=== PATIENT | male | born 1945 | race Caucasian/White ===

== ENCOUNTER 2018-12-24 18:25 | Inpatient (IN) | payer MEDICARE, MEDICAID ==
[~2018-12-24] VITALS: Ht 172.7 cm; Wt 90.0 kg
[2018-12-24] VITALS (10 sets, daily range): BP systolic 151–198; BP diastolic 65–92
[2018-12-24 23:40] LABS: CREATININE - URINE 50.7 mg/dL (30-125); PROTEIN - URINE 199.6 mg/dL (0.0-11.9)
[2018-12-24 23:57] LABS: APPEARANCE HAZY (CLEAR); BILIRUBIN NEGATIVE (NEGATIVE); COLOR YELLOW (YELLOW); GLUCOSE 250 mg/dL (NEGATIVE); KETONE SMALL mg/dL (NEGATIVE); NITRITE NEGATIVE (NEGATIVE); PROTEIN 3+ mg/dL (NEGATIVE); RED CELLS - URINE 25-50 /hpf (0-5); WHITE CELLS - URINE RARE /hpf (0-5)
[2018-12-24 23:58] LABS: BACTERIA FEW /hpf (NONE SEEN); EPITHELIAL CELLS OCC /hpf (0-5); MUCUS <1+ /lpf (NONE SEEN)
[2018-12-25] VITALS (25 sets, daily range): BP systolic 129–181; BP diastolic 61–84; Ht 172.7 cm; Wt 90.0 kg
[2018-12-25 05:24] LABS: BASOPHILS 0 % (0-2); EOSINOPHILS 0 % (0-7); HEMATOCRIT 41.7 % (42.0-54.0); HEMOGLOBIN 15.5 g/dL (13.5-17.5); IMMATURE GRANULOCYTES 0.4 % (0-5); LYMPHOCYTES 7.3 % (15-50); MCH 33.8 pg (26.0-34.0); MCHC 37.2 g/dL (31.0-37.0); MEAN PLATELET VOLUME 10.1 fL (7.4-10.4); MONOCYTES 6.3 % (2-11); PLATELET COUNT 188 10x3/uL (130-400); RBC 4.58 10x6/uL (4.20-6.10); RDW 13.6 % (11.5-14.5); WBC 14.1 10x3/uL (4.8-10.8)
[2018-12-25 06:45] LABS: ALBUMIN 3.1 g/dL (3.4-5.0); ALKALINE PHOSPHATASE 95 U/L (46-116); ALT (SGPT) 40 U/L (10-68); CALC OSMOLALITY 253 mosm/kg (275-300); CALCIUM 8.2 mg/dL (8.5-10.1); CARBON DIOXIDE 27.6 mmol/L (21.0-32.0); CHLORIDE - SERUM 90 mmol/L (98-107); CREATININE - SERUM 0.7 mg/dL (0.6-1.3); GLUCOSE 158 mg/dL (74-106); POTASSIUM - SERUM 4.1 mmol/L (3.5-5.1); PROTEIN - SERUM 7.4 g/dL (6.4-8.2); SODIUM 125 mmol/L (136-145); UREA NITROGEN 10 mg/dL (7-18); eGFR NON AFRICAN AMERICAN > 90 mL/min (90-120)
[2018-12-26] VITALS (21 sets, daily range): BP systolic 132–180; BP diastolic 55–88
[2018-12-26 05:02] LABS: ALBUMIN 2.8 g/dL (3.4-5.0); ALKALINE PHOSPHATASE 83 U/L (46-116); ALT (SGPT) 33 U/L (10-68); CARBON DIOXIDE 33.5 mmol/L (21.0-32.0); CHLORIDE - SERUM 92 mmol/L (98-107); CREATININE - SERUM 0.7 mg/dL (0.6-1.3); GLUCOSE 135 mg/dL (74-106); PHOSPHOROUS 3.3 mg/dL (2.5-4.9); POTASSIUM - SERUM 3.6 mmol/L (3.5-5.1); PROTEIN - SERUM 6.9 g/dL (6.4-8.2); SODIUM 127 mmol/L (136-145); eGFR NON AFRICAN AMERICAN > 90 mL/min (90-120)
[2018-12-26 05:24] LABS: BASOPHILS 0.1 % (0-2); EOSINOPHILS 0.5 % (0-7); HEMATOCRIT 42.4 % (42.0-54.0); HEMOGLOBIN 14.7 g/dL (13.5-17.5); IMMATURE GRANULOCYTES 0.4 % (0-5); LYMPHOCYTES 10.9 % (15-50); MCH 32.4 pg (26.0-34.0); MCHC 34.7 g/dL (31.0-37.0); MONOCYTES 10.5 % (2-11); NEUTROPHILS 77.6 % (40-80); PLATELET COUNT 159 10x3/uL (130-400); RBC 4.54 10x6/uL (4.20-6.10); RDW 13.7 % (11.5-14.5); WBC 14.2 10x3/uL (4.8-10.8)
[2018-12-26 05:26] LABS: CALC OSMOLALITY 257 mosm/kg (275-300); UREA NITROGEN 14 mg/dL (7-18)
[2018-12-26 05:53] LABS: MCV 93.4 fL (80.0-100.0)
[2018-12-27] VITALS (26 sets, daily range): BP systolic 131–170; BP diastolic 61–83
[2018-12-27 04:32] LABS: BASOPHILS 0.1 % (0-2); EOSINOPHILS 0.8 % (0-7); HEMATOCRIT 40.4 % (42.0-54.0); HEMOGLOBIN 14.3 g/dL (13.5-17.5); IMMATURE GRANULOCYTES 0.2 % (0-5); LYMPHOCYTES 11.1 % (15-50); MCH 32.4 pg (26.0-34.0); MCHC 35.4 g/dL (31.0-37.0); MCV 91.6 fL (80.0-100.0); MEAN PLATELET VOLUME 10.1 fL (7.4-10.4); MONOCYTES 7.5 % (2-11); NEUTROPHILS 80.3 % (40-80); PLATELET COUNT 179 10x3/uL (130-400); RBC 4.41 10x6/uL (4.20-6.10); RDW 13.5 % (11.5-14.5); WBC 13.9 10x3/uL (4.8-10.8)
[2018-12-27 04:53] LABS: ALBUMIN 2.5 g/dL (3.4-5.0); ALKALINE PHOSPHATASE 77 U/L (46-116); ALT (SGPT) 33 U/L (10-68); BILIRUBIN - TOTAL 0.42 mg/dL (0.2-1.3); CALC OSMOLALITY 261 mosm/kg (275-300); CALCIUM 8.2 mg/dL (8.5-10.1); CARBON DIOXIDE 31.1 mmol/L (21.0-32.0); CHLORIDE - SERUM 92 mmol/L (98-107); CREATININE - SERUM 0.7 mg/dL (0.6-1.3); GLUCOSE 143 mg/dL (74-106); MAGNESIUM - SERUM 2.1 mg/dL (1.8-2.4); PHOSPHOROUS 3.4 mg/dL (2.5-4.9); POTASSIUM - SERUM 3.7 mmol/L (3.5-5.1); PROTEIN - SERUM 6.6 g/dL (6.4-8.2); SODIUM 129 mmol/L (136-145); UREA NITROGEN 14 mg/dL (7-18); eGFR NON AFRICAN AMERICAN > 90 mL/min (90-120)
[2018-12-28] VITALS (18 sets, daily range): BP systolic 92–157; BP diastolic 54–82
[2018-12-28 03:59] LABS: BASOPHILS 0.1 % (0-2); EOSINOPHILS 2.1 % (0-7); HEMOGLOBIN 14.5 g/dL (13.5-17.5); IMMATURE GRANULOCYTES 0.3 % (0-5); LYMPHOCYTES 11.4 % (15-50); MCH 32.6 pg (26.0-34.0); MCHC 35.4 g/dL (31.0-37.0); MCV 92.1 fL (80.0-100.0); MONOCYTES 7.9 % (2-11); NEUTROPHILS 78.2 % (40-80); PLATELET COUNT 174 10x3/uL (130-400); RBC 4.45 10x6/uL (4.20-6.10); RDW 13.4 % (11.5-14.5); WBC 13.5 10x3/uL (4.8-10.8)
[2018-12-28 04:17] LABS: ALBUMIN 2.5 g/dL (3.4-5.0); ALKALINE PHOSPHATASE 74 U/L (46-116); ALT (SGPT) 35 U/L (10-68); BILIRUBIN - TOTAL 0.36 mg/dL (0.2-1.3); CALCIUM 8.5 mg/dL (8.5-10.1); CARBON DIOXIDE 32.6 mmol/L (21.0-32.0); CHLORIDE - SERUM 93 mmol/L (98-107); CREATININE - SERUM 0.8 mg/dL (0.6-1.3); GLUCOSE 142 mg/dL (74-106); MAGNESIUM - SERUM 2.3 mg/dL (1.8-2.4); POTASSIUM - SERUM 3.9 mmol/L (3.5-5.1); PROTEIN - SERUM 6.8 g/dL (6.4-8.2); SODIUM 129 mmol/L (136-145); eGFR NON AFRICAN AMERICAN > 90 mL/min (90-120)
[2018-12-28 04:18] LABS: CALC OSMOLALITY 263 mosm/kg (275-300); PHOSPHOROUS 4.3 mg/dL (2.5-4.9); UREA NITROGEN 20 mg/dL (7-18)
--- NOTE | 2018-12-28 18:01 | MORECARE ---
CASE MANAGEMENT DISCHARGE SUMMARY PATIENT: ANNEL NUNEZ UNIT: [id number] ADM DATE: 12/24/18 AGE: 73 : 46 SEX: M ROOM/BED: D.2309 AUTHOR: JAC JENKINS PHYSICIAN: REFERRING PHYSICIAN: DANNI TAY MD DATE OF SERVICE: 12/28/18 Discharge Plan Patient Name: ANNEL [facility]UNE[facility] [facility] 1945 Planned Disposition: Home with Home Health and Infusion Serv Anticipated Discharge Date: Discharge Date: Expected LOS: Initial Reviewer: [email or web address] Initial Review Date: 12/27/2018 Generated: 12/28/18 7:01 pm Patient Name: ANNEL NUNEZ Page 62804 at 1801 All edits/amendments must be made on the electronic document DICTATION DATE: 12/28/181800 CLINICAL PSYCHOLOGIST LICENSED: JEAN 12/28/181800 RPT#: [id number] DC DATE: STATUS: ADM IN [facility] [address] [place] [address] END OF REPORT
--- NOTE | 2018-12-28 18:09 | MORECARE ---
CASE MANAGEMENT DISCHARGE SUMMARY PATIENT: ANNEL NUNEZ UNIT: [id number] ADM DATE: 12/24/18 AGE: 73 : 46 SEX: M ROOM/BED: D.2309 AUTHOR: JAC JENKINS PHYSICIAN: REFERRING PHYSICIAN: DANNI TAY MD DATE OF SERVICE: 12/28/18 Discharge Plan Patient Name: ANNEL NUNEZ [facility] [facility] 1945 Planned Disposition: Home with Home Health and Infusion Serv Anticipated Discharge Date: Discharge Date: Expected LOS: Initial Reviewer: [email or web address] Initial Review Date: 12/27/2018 Generated: 12/28/18 7:08 pm DCPIA - Discharge Planning Initial Assessment Updated by [email or web address]: Selin Vides on 12/28/18 6:05 pm * Is the patient Alert and Oriented? Yes * PCP NO PCP * Pharmacy DENIES HAVING A PHARMACY * Preadmission Environment Home Alone * ADLs Independent * Equipment None * List name and contact numbers for known caregivers / representatives who currently or will assist patient after discharge: REDD COLIN [facility] [phone] * Verbal permission to speak to the caregivers and representatives has been obtained from the patient. Yes * Community resources currently utilized None * Additional services required to return to the preadmission environment? No * Can the patient safely return to the preadmission environment? Yes * Has this patient been hospitalized within the prior 30 days at any hospital? No Last DP export: 12/28/18 5:01 p Patient Name: ANNEL NUNEZ Page 95449 at 1809 All edits/amendments must be made on the electronic document DICTATION DATE: 12/28/181807 COCONUT JELLY ROLLER: JEAN 12/28/181807 RPT#: [id number] DC DATE: STATUS: ADM IN [facility] [address] [place] [address] END OF REPORT
--- NOTE | 2018-12-28 18:23 | MORECARE ---
CASE MANAGEMENT DISCHARGE SUMMARY PATIENT: ANNEL NUNEZ UNIT: [id number] ADM DATE: 12/24/18 AGE: 73 : 46 SEX: M ROOM/BED: D.2309 AUTHOR: ALICE,DOC PHYSICIAN: REFERRING PHYSICIAN: DANNI TAY MD DATE OF SERVICE: 12/28/18 Discharge Plan Patient Name: ANNEL NUNEZ Facility: [facility]:[place] : 1945 Planned Disposition: Home with Home Health and Infusion Serv Anticipated Discharge Date: Discharge Date: Expected LOS: Initial Reviewer: [email or web address] Initial Review Date: 12/27/2018 Generated: 12/28/18 7:23 pm Comments DCP- Discharge Planning Updated by [email or web address]: Selin Vides on 12/28/18 5:[address] LATE ENTRY 12/27/18 @ 1300 Patient Name: ANNEL NUNEZ Admission Status: ER Accout number: [id number] Admission Date: 12-24-2018 : 1945 Admission Diagnosis:MALIGNANT NEOPLASM OF GLOTTIS Attending: DANNI TAY Current LOS: 4 Anticipated DC Date: Planned Disposition: Home with Home Health and Infusion Serv Primary Insurance: [employer] CHOICE PPO [facility] Discharge Planning Comments: CM met with patient at bedside he was able to mouth and nod his head to answer questions. He states he plans on living with his sister upon discharge. Has no medical equipment or previous home health services. Patient gave CM permission to call sister Tiff for any information needed. CM will continue to follow and assist as needed with discharge planning / needs. Business Programmer: Selin Vides DCPIA - Discharge Planning Initial Assessment Updated by [email or web address]: Selin Vides on 12/28/18 6:05 pm * Is the patient Alert and Oriented? Yes * PCP NO PCP * Pharmacy DENIES HAVING A PHARMACY * Preadmission Environment Home Alone * ADLs Independent * Equipment None * List name and contact numbers for known caregivers / representatives who currently or will assist patient after discharge: TIFF COLIN - [phone] * Verbal permission to speak to the caregivers and representatives has been obtained from the patient. Yes * Community resources currently utilized None * Additional services required to return to the preadmission environment? No * Can the patient safely return to the preadmission environment? Yes * Has this patient been hospitalized within the prior 30 days at any hospital? No Last DP export: 12/28/18 5:08 p Patient Name: ANNEL NUNEZ Page 99889 at 1823 All edits/amendments must be made on the electronic document DICTATION DATE: 12/28/181821 MARKETING OUTREACH COORDINATOR: JEAN 12/28/181821 RPT#: [id number] DC DATE: STATUS: ADM IN [facility] [address] [place] [address] END OF REPORT
--- NOTE | 2018-12-28 18:35 | MORECARE ---
CASE MANAGEMENT DISCHARGE SUMMARY PATIENT: ANNEL NUNEZ UNIT: [id number] ADM DATE: 12/24/18 AGE: 73 : 46 SEX: M ROOM/BED: D.2309 AUTHOR: ALICE,DOC PHYSICIAN: REFERRING PHYSICIAN: DANNI TAY MD DATE OF SERVICE: 12/28/18 Discharge Plan Patient Name: ANNEL NUNEZ Facility[facility]:[place] : 1945 Planned Disposition: Home with Home Health and Infusion Serv Anticipated Discharge Date: Discharge Date: Expected LOS: Initial Reviewer: [email or web address] Initial Review Date: 12/27/2018 Generated: 12/28/18 7:35 pm Comments DCP- Discharge Planning Updated by [email or web address]: Selin Vides on 12/28/18 5:[address] CM received call from Dr. Le that patient is going to need laryngectomy. He states that the patient and sister will need teaching on trach care and tube feedings prior to discharge. He states that he will most likely need home health. He states that he wants when the patient is discharged to go see MD in [place] for laryngectomy. within the same week. Planning on discharge early next week. CM wasn't able to get in touch with patients sister for [facility] for Home Health services. CM will continue to follow and assist as needed with discharge planning / needs. DCP- Discharge Planning Updated by [email or web address]: Selin Vides on 12/28/18 5:[address] LATE ENTRY 12/27/18 @ 1300 Patient Name: ANNEL NUNEZ Admission Status: ER Accout number: [id number] Admission Date: 12-24-2018 : 1945 Admission Diagnosis:MALIGNANT NEOPLASM OF GLOTTIS Attending: DANNI TAY Current LOS: 4 Anticipated DC Date: Planned Disposition: Home with Home Health and Infusion Serv Primary Insurance: [employer] CHOICE PPO [facility] Discharge Planning Comments: CM met with patient at bedside he was able to mouth and nod his head to answer questions. He states he plans on living with his sister upon discharge. Has no medical equipment or previous home health services. Patient gave CM permission to call sister Tiff for any information needed. CM will continue to follow and assist as needed with discharge planning / needs. Capital Campaign Fundraiser: Selin Vides DCPIA - Discharge Planning Initial Assessment Updated by [email or web address]: Selin Vides on 12/28/18 6:05 pm * Is the patient Alert and Oriented? Yes * PCP NO PCP * Pharmacy DENIES HAVING A PHARMACY * Preadmission Environment Home Alone * ADLs Independent * Equipment None * List name and contact numbers for known caregivers / representatives who currently or will assist patient after discharge: TIFF COLIN - [facility] [phone] * Verbal permission to speak to the caregivers and representatives has been obtained from the patient. Yes * Community resources currently utilized None * Additional services required to return to the preadmission environment? No * Can the patient safely return to the preadmission environment? Yes * Has this patient been hospitalized within the prior 30 days at any hospital? No Last DP export: 12/28/18 5:23 p Patient Name: ANNEL NUNEZ Page 32138 at 1835 All edits/amendments must be made on the electronic document DICTATION DATE: 12/28/181834 LEGAL PROJECT MANAGER: JEAN 12/28/181834 RPT#: [id number] DC DATE: STATUS: ADM IN [facility] [address] [place] [address] END OF REPORT
[2018-12-29] VITALS: BP 133/60
[2018-12-29 02:40] LABS: BASOPHILS 0.2 % (0-2); EOSINOPHILS 2.4 % (0-7); HEMATOCRIT 39.6 % (42.0-54.0); HEMOGLOBIN 13.9 g/dL (13.5-17.5); IMMATURE GRANULOCYTES 0.4 % (0-5); LYMPHOCYTES 14.9 % (15-50); MCH 32.6 pg (26.0-34.0); MCHC 35.1 g/dL (31.0-37.0); MCV 92.7 fL (80.0-100.0); MEAN PLATELET VOLUME 9.6 fL (7.4-10.4); MONOCYTES 8.1 % (2-11); PLATELET COUNT 189 10x3/uL (130-400); RBC 4.27 10x6/uL (4.20-6.10); RDW 13.2 % (11.5-14.5); WBC 11.4 10x3/uL (4.8-10.8)
[2018-12-29 02:50] LABS: ALBUMIN 2.4 g/dL (3.4-5.0); ALKALINE PHOSPHATASE 78 U/L (46-116); ALT (SGPT) 38 U/L (10-68); BILIRUBIN - TOTAL 0.32 mg/dL (0.2-1.3); CALC OSMOLALITY 269 mosm/kg (275-300); CALCIUM 8.4 mg/dL (8.5-10.1); CARBON DIOXIDE 33.6 mmol/L (21.0-32.0); CHLORIDE - SERUM 94 mmol/L (98-107); CREATININE - SERUM 0.9 mg/dL (0.6-1.3); GLUCOSE 153 mg/dL (74-106); MAGNESIUM - SERUM 2.4 mg/dL (1.8-2.4); PHOSPHOROUS 4.5 mg/dL (2.5-4.9); POTASSIUM - SERUM 3.8 mmol/L (3.5-5.1); PROTEIN - SERUM 6.6 g/dL (6.4-8.2); SODIUM 131 mmol/L (136-145); UREA NITROGEN 23 mg/dL (7-18); eGFR NON AFRICAN AMERICAN 88 mL/min (90-120)
[2018-12-29 03:00] VITALS: BP 133/61
[2018-12-29 08:43] VITALS: BP 108/58
--- NOTE | 2018-12-29 10:49 | OP ---
PATIENT NAME: ANNEL NUNEZ MEDICAL RECORD: [id number] :[birth year] LOCATION:D.MS [id number] ADMISSION DATE:12/24/18 SURGEON: MALDONADO PACHECO MD DATE OF OPERATION: 12/24/2018 PREOPERATIVE DIAGNOSIS: Stridor airway obstruction. POSTOPERATIVE DIAGNOSIS: Stridor airway obstruction. PROCEDURE: Emergent tracheotomy and laryngoscopy with biopsy. SURGEON: Maldonado Pacheco MD ANESTHESIA: General orotracheal. BLOOD LOSS: 1 cc. SPECIMENS: Multiple biopsies of the glottic area and really no cords. TRACH TUBE: A #6 cuffed Shiley. COMPLICATIONS: None. DISPOSITION: ICU. FINDINGS: Flexible laryngoscopy before he was given any sedation showed a fairly normal supraglottic larynx. The arytenoids looked normal. AE folds, piriforms looked normal. 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 He was edentulous, had good neck mobility. On exam of his neck, there were no palpable masses. His cricoid was right at the sternal notch. He was sedated with just propofol and with a #4 Cintron blade. Easily and quickly placed a 5-1/2 cuffed tube through the tumor mass on to the airway and the cuff was inflated that was used to ventilate him and then he was prepped and draped in usual sterile fashion for tracheotomy. Skin was injected with 1 cc of 1% lidocaine with 1:100,000 epinephrine and a horizontal incision was made detention just right at the level of the cricoid, really it was right above the sternal notch. This was taken down. The cricoid was palpated. The strap muscles were divided in the midline. Upper portion of the thyroid was divided with a Spatula tip cautery. The trachea was identified. I tried to perform a fairly high tracheotomy to preserve as much of the trachea for laryngectomy as possible, but entered tumor just below the cricoid, so went a little bit further down, second tracheal ring, took that out after decrease in the end tidal, the FiO2, entered the trachea with a 15 blade, removed that portion of the anterior tracheal ring with a tonsil clamp and then backed up the ET tube slightly and placed a #6 cuffed Shiley, inflated the cuff, hooked him up to the ventilator, couple of 2-0 Prolene sutures in the skin to make the tracheotomy wound smaller and then sutured the trach tube to the skin with a flange and 0 Prolene and then placed the trach ties tied around the neck, the cotton trach tie. Then turned the table 90 degrees. Kleinsasser J laryngoscope was inserted, again viewed the larynx. Supraglottic larynx again fairly normal. The entire glottic level of the glottis was just a medellin tumor mass. No discernible cords or anatomy below that down into the subglottic area, took about 10 biopsies to grade little bit of an open airway there as well with upbiting 4 mm cup forceps that was all sent in formalin for path. There was really no bleeding there. He was OPERATIVE REPORT [id number] ANNEL NUNEZ transported to the ICU on the ventilator. TRANSINT:[id number] Voice Confirmation ID: [id number] DOCUMENT ID: [id number] MALDONADO PACHECO MD at 1049 CC: [id number] DICTATION DATE: 12/24/182231 PRICING ACTUARY: 12/24/18 3667 ADM IN [facility] [address] [place] [id number]
--- NOTE | 2018-12-29 10:49 | CN ---
PATIENT NAME:ANNEL MIGUEL MEDICAL RECORD: [id number] : [birth year] LOCATION:D.MS Moyer2216 ADMIT DATE: 12/24/18 ACCOUNT: [id number] CONSULTING PHYSICIAN: ALANNAH PACHECO MD REFERRING PHYSICIAN: DANNI TAY MD DATE OF CONSULTATION: 12/24/2018 CONSULT FROM: Emergency Room. REASON FOR CONSULT: For airway compromise. HISTORY OF PRESENT ILLNESS: Mr. Miguel is a 73-year-old male was sent from [place] with hypertension and difficulty breathing. Had a CT done at [place] the time of the consult, all I knew was that there was a supraglottic mass, on seeing the patient, he was obviously sitting upright, 100% nonrebreather, barely maintaining sats. He was able to communicate, not really able to understand his voice very well, extreme hoarseness, biphasic stridor, labored breathing, talked to him a little, was unable to get too much information but just that he had progressive trouble with his breathing. 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 We went over that with him, possibility of awake tracheotomy versus intubating and then tracheotomy, was not sure at that time. PLAN: OR emergently for tracheotomy, laryngoscopy, biopsy. TRANSINT:[id number] Voice Confirmation ID: [id number] DOCUMENT ID: [id number] ALANNAH PACHECO MD at 1049 CC: [id number] DICTATION DATE: 12/24/182225 FINANCIAL ENGINEER: 12/24/18 2343 ADM IN [facility] [address] [place] [address]
[2018-12-29 13:50] VITALS: BP 110/52
--- NOTE | 2018-12-29 14:59 | MORECARE ---
CASE MANAGEMENT DISCHARGE SUMMARY PATIENT: ANNEL NUNEZ UNIT: [id number] ADM DATE: 12/24/18 AGE: 73 : 46 SEX: M ROOM/BED: D.2216 AUTHOR: ALICE,DOC PHYSICIAN: REFERRING PHYSICIAN: DANNI TAY MD DATE OF SERVICE: 12/29/18 Discharge Plan Patient Name: ANNEL NUNEZ Facility[facility]:[place] : 1945 Planned Disposition: Home with Home Health and Infusion Serv Anticipated Discharge Date: Discharge Date: Expected LOS: Initial Reviewer: [email or web address] Initial Review Date: 12/27/2018 Generated: 12/29/18 3:59 pm Comments DCP- Discharge Planning Updated by [email or web address]: Dacia Dumont on 12/29/18 1:[address] PACHECO SPOKE W/ CM THIS EARLY AM. HE WILL BE REFERRING THE PATIENT TO DR EBONI CAMACHO [facility]. HE WILL PERSONALLY CALL DR BRICENO ON MONDAY TO EXPEDIATE THE REFERRAL. CM ADVISED THE PATIENT. CM CALLED [facility] AND REQUESTED THE PATIENT'S FILMS ON DISC. RADIOLOGY WILL DELIVER THE DISC TO THE UNIT ON MONDAY. PACKET W/ CLINICAL INFORMATION PREPARED. CM SPOKE W/ RESPIRATORY THERAPIST, ARUN, REGARDING PATIENT TEACHING. HE BEGAN TEACHING W/ THE PATIENT THIS AM. HE WILL DOCUMENT SUBJECT AND PROGRESS. SEGUNDO SPOKE WITH THE PRIMARY NURSE, SHAGUFTA, TO UPDATE. DISCUSSED TEACHING NEEDS. SHE ALSO IS FAMILIAR W/ DR BRICENO AND WILL DISCUSS WITH THE PATIENT IS HE HAS ANY CONCERNS OR QUESTIONS. STATED THE PATIENT MAYBE DISCHARGE TO HOME W/ ARIEL. CM WILL FOLLOW UP WITH THE PATIENT AND HIS SISTER REGARDING HOME HEALTH SERVICES AND PROVIDERS. CM RECEIVED CM CONSULT. INITIAL ASSESSMENT WAS DONE Monday12/28/18. CM FOLLOWING FOR DCP NEEDS. DCP- Discharge Planning Updated by [email or web address]: Selin Vides on 12/28/18 5:[address] CM received call from Dr. Pacheco that patient is going to need laryngectomy. He states that the patient and sister will need teaching on trach care and tube feedings prior to discharge. He states that he will most likely need home health. He states that he wants when the patient is discharged to go see MD in [place] for laryngectomy. within the same week. Planning on discharge early next week. CM wasn't able to get in touch with patients sister for [facility] for Home Health services. CM will continue to follow and assist as needed with discharge planning / needs. DCP- Discharge Planning Updated by [email or web address]: Selin Vides on 12/28/18 5:[address] LATE ENTRY 12/27/18 @ 1300 Patient Name: ANNEL NUNEZ Admission Status: ER Accout number: [id number] Admission Date: 12-24-2018 : 1945 Admission Diagnosis:MALIGNANT NEOPLASM OF GLOTTIS Attending: DANNI TAY Current LOS: 4 Anticipated DC Date: Planned Disposition: Home with Home Health and Infusion Serv Primary Insurance: [employer] CHOICE PPO [facility] Discharge Planning Comments: CM met with patient at bedside he was able to mouth and nod his head to answer questions. He states he plans on living with his sister upon discharge. Has no medical equipment or previous home health services. Patient gave CM permission to call sister Tiff for any information needed. CM will continue to follow and assist as needed with discharge planning / needs. Refrigerating Oiler: Selin Vides DCPIA - Discharge Planning Initial Assessment Updated by [email or web address]: Selin Vides on 12/28/18 6:05 pm * Is the patient Alert and Oriented? Yes * PCP NO PCP * Pharmacy DENIES HAVING A PHARMACY * Preadmission Environment Home Alone * ADLs Independent * Equipment None * List name and contact numbers for known caregivers / representatives who currently or will assist patient after discharge: TIFF COLIN - - [phone] * Verbal permission to speak to the caregivers and representatives has been obtained from the patient. Yes * Community resources currently utilized None * Additional services required to return to the preadmission environment? No * Can the patient safely return to the preadmission environment? Yes * Has this patient been hospitalized within the prior 30 days at any hospital? No Last DP export: 12/28/18 5:35 p Patient Name: ANNEL NUNEZ Page 27772 at 4090 All edits/amendments must be made on the electronic document DICTATION DATE: 12/29/18 7957 ANIMAL ASSISTED THERAPIST: JEAN 12/29/18 8364 RPT#: [id number] DC DATE: STATUS: ADM IN [facility] [address] [place] [address] END OF REPORT
[2018-12-29 17:55] VITALS: BP 128/50
[2018-12-29 20:00] VITALS: BP 146/66
[2018-12-30] VITALS: BP 139/56
[2018-12-30 03:00] VITALS: BP 129/61
[2018-12-30 05:37] LABS: BASOPHILS 0.3 % (0-2); EOSINOPHILS 2.4 % (0-7); HEMATOCRIT 41.2 % (42.0-54.0); IMMATURE GRANULOCYTES 0.5 % (0-5); MCV 94.3 fL (80.0-100.0); MEAN PLATELET VOLUME 9.5 fL (7.4-10.4); MONOCYTES 9.3 % (2-11); NEUTROPHILS 70.5 % (40-80); PLATELET COUNT 208 10x3/uL (130-400); RBC 4.37 10x6/uL (4.20-6.10); RDW 13.3 % (11.5-14.5); WBC 13.2 10x3/uL (4.8-10.8)
[2018-12-30 05:52] LABS: % SATURATION 14 % (15-55); IRON 37 ug/dl (35-150); TOTAL IRON BIND CAPACITY 253 ug/dl (260-445); UNSAT IRON BIND CAPACITY 216 ug/dl (150-375)
[2018-12-30 06:02] LABS: CALC OSMOLALITY 274 mosm/kg (275-300); CALCIUM 8.8 mg/dL (8.5-10.1); CARBON DIOXIDE 32.3 mmol/L (21.0-32.0); CHLORIDE - SERUM 95 mmol/L (98-107); CREATININE - SERUM 0.9 mg/dL (0.6-1.3); FERRITIN 579 ng/mL (3-244); GLUCOSE 149 mg/dL (74-106); SODIUM 134 mmol/L (136-145); UREA NITROGEN 23 mg/dL (7-18); eGFR NON AFRICAN AMERICAN 88 mL/min (90-120)
[2018-12-30 09:08] VITALS: BP 122/66
[2018-12-30 12:18] VITALS: BP 137/61
[2018-12-30 17:06] VITALS: BP 144/55
[2018-12-30 18:05] LABS: APPEARANCE CLEAR (CLEAR); COLOR YELLOW (YELLOW); GLUCOSE 250 mg/dL (NEGATIVE); KETONE NEGATIVE (NEGATIVE); NITRITE NEGATIVE (NEGATIVE); PROTEIN TRACE mg/dL (NEGATIVE); UROBILINOGEN NORMAL (NORMAL)
[2018-12-30 18:06] LABS: BILIRUBIN 1+ (NEGATIVE)
[2018-12-30 18:07] LABS: BACTERIA MODERATE /hpf (NONE SEEN); EPITHELIAL CELLS 0-5 /hpf (0-5); RED CELLS - URINE 0-5 /hpf (0-5); WHITE CELLS - URINE 0-5 /hpf (0-5)
[2018-12-31] VITALS: BP 135/61
[2018-12-31 03:00] VITALS: BP 112/58
[2018-12-31 05:34] LABS: BASOPHILS 0.3 % (0-2); EOSINOPHILS 3.4 % (0-7); HEMATOCRIT 39.7 % (42.0-54.0); HEMOGLOBIN 13.4 g/dL (13.5-17.5); IMMATURE GRANULOCYTES 0.4 % (0-5); LYMPHOCYTES 17.2 % (15-50); MCH 32.3 pg (26.0-34.0); MCHC 33.8 g/dL (31.0-37.0); MCV 95.7 fL (80.0-100.0); MEAN PLATELET VOLUME 9.7 fL (7.4-10.4); MONOCYTES 10.7 % (2-11); PLATELET COUNT 206 10x3/uL (130-400); RBC 4.15 10x6/uL (4.20-6.10); RDW 13.6 % (11.5-14.5); WBC 11.6 10x3/uL (4.8-10.8)
[2018-12-31 05:53] LABS: CALC OSMOLALITY 276 mosm/kg (275-300); CALCIUM 8.4 mg/dL (8.5-10.1); CARBON DIOXIDE 34.6 mmol/L (21.0-32.0); CHLORIDE - SERUM 98 mmol/L (98-107); CREATININE - SERUM 0.8 mg/dL (0.6-1.3); GLUCOSE 134 mg/dL (74-106); POTASSIUM - SERUM 3.7 mmol/L (3.5-5.1); SODIUM 136 mmol/L (136-145); UREA NITROGEN 21 mg/dL (7-18); eGFR NON AFRICAN AMERICAN > 90 mL/min (90-120)
[2018-12-31 08:46] VITALS: BP 115/70
[2018-12-31 13:17] VITALS: BP 119/65
--- NOTE | 2018-12-31 14:58 | MORECARE ---
CASE MANAGEMENT DISCHARGE SUMMARY PATIENT: ANNEL NUNEZ UNIT: [id number] ADM DATE: 12/24/18 AGE: 73 : 46 SEX: M ROOM/BED: D.2216 AUTHOR: ALICE,DOC PHYSICIAN: REFERRING PHYSICIAN: DANNI TAY MD DATE OF SERVICE: 12/31/18 Discharge Plan Patient Name: ANNEL NUNEZ Facility[facility]:[place] : 1945 Planned Disposition: Home with Home Health and Infusion Serv Anticipated Discharge Date: Discharge Date: Expected LOS: Initial Reviewer: [email or web address] Initial Review Date: 12/27/2018 Generated: 12/31/18 3:58 pm DCP- Discharge Planning Updated by [email or web address]: Dacia Dumont on 12/29/18 1:[address] PACHECO SPOKE W/ CM THIS EARLY AM. HE WILL BE REFERRING THE PATIENT TO DR EBONI CAMACHO [facility]K [facility] LOCATED IN [place]. HE WILL PERSONALLY CALL DR BRICENO ON MONDAY TO EXPEDIATE THE REFERRAL. CM ADVISED THE PATIENT. CM CALLED [facility] AND REQUESTED THE PATIENT'S FILMS ON DISC. RADIOLOGY WILL DELIVER THE DISC TO THE UNIT ON MONDAY. PACKET W/ CLINICAL INFORMATION PREPARED. CM SPOKE W/ RESPIRATORY THERAPIST, ARUN, REGARDING PATIENT TEACHING. HE BEGAN TEACHING W/ THE PATIENT THIS AM. HE WILL DOCUMENT SUBJECT AND PROGRESS. SEGUNDO SPOKE WITH THE PRIMARY NURSE, SHAGUFTA, TO UPDATE. DISCUSSED TEACHING NEEDS. SHE ALSO IS FAMILIAR W/ DR BRICENO AND WILL DISCUSS WITH THE PATIENT IS HE HAS ANY CONCERNS OR QUESTIONS. STATED THE PATIENT MAYBE DISCHARGE TO HOME W/ [place]. CM WILL FOLLOW UP WITH THE PATIENT AND HIS SISTER REGARDING HOME HEALTH SERVICES AND PROVIDERS. CM RECEIVED CM CONSULT. INITIAL ASSESSMENT WAS DONE Monday12/28/18. CM FOLLOWING FOR DCP NEEDS. DCP- Discharge Planning Updated by [email or web address]: Selin Vdies on 12/28/18 5:[address] CM received call from Dr. Pacheco that patient is going to need laryngectomy. He states that the patient and sister will need teaching on trach care and tube feedings prior to discharge. He states that he will most likely need home health. He states that he wants when the patient is discharged to go see MD in [place] for laryngectomy. within the same week. Planning on discharge early next week. CM wasn't able to get in touch with patients sister for [facility] for Home Health services. CM will continue to follow and assist as needed with discharge planning / needs. DCP- Discharge Planning Updated by [email or web address]: Selin Vides on 12/28/18 5:[address] LATE ENTRY 12/27/18 @ 1300 Patient Name: ANNEL NUNEZ Admission Status: ER Accout number: [id number] Admission Date: 12-24-2018 : 1945 Admission Diagnosis:MALIGNANT NEOPLASM OF GLOTTIS Attending: DANNI TAY Current LOS: 4 Anticipated DC Date: Planned Disposition: Home with Home Health and Infusion Serv Primary Insurance: [employer] CHOICE PPO [facility] Discharge Planning Comments: CM met with patient at bedside he was able to mouth and nod his head to answer questions. He states he plans on living with his sister upon discharge. Has no medical equipment or previous home health services. Patient gave CM permission to call sister Tiff for any information needed. CM will continue to follow and assist as needed with discharge planning / needs. Watershed Coordinator: Selin Vides DCPIA - Discharge Planning Initial Assessment Updated by [email or web address]: Selin Vides on 12/28/18 6:05 pm * Is the patient Alert and Oriented? Yes * PCP NO PCP * Pharmacy DENIES HAVING A PHARMACY * Preadmission Environment Home Alone * ADLs Independent * Equipment None * List name and contact numbers for known caregivers / representatives who currently or will assist patient after discharge: TIFF COLIN - - [phone] * Verbal permission to speak to the caregivers and representatives has been obtained from the patient. Yes * Community resources currently utilized None * Additional services required to return to the preadmission environment? No * Can the patient safely return to the preadmission environment? Yes * Has this patient been hospitalized within the prior 30 days at any hospital? No External Providers External Provider: [facility] Next Contact Date: Service Request Date: Service Type: Resolution: Reviewer: Comments: Last DP export: 12/29/18 1:59 p Patient Name: ANNEL NUNEZ Page 38764 at 1458 All edits/amendments must be made on the electronic document DICTATION DATE: 12/31/181457 WOOD DRILL OPERATOR: JEAN 12/31/181457 RPT#: [id number] [place] DATE: STATUS: ADM IN [facility] [address] [place] [address] END OF REPORT
--- NOTE | 2018-12-31 16:42 | MORECARE ---
CASE MANAGEMENT DISCHARGE SUMMARY PATIENT: ANNEL NUNEZ UNIT: [id number] ADM DATE: 12/24/18 AGE: 73 : 46 SEX: M ROOM/BED: D.2216 AUTHOR: ALICE,DOC PHYSICIAN: REFERRING PHYSICIAN: DANNI TAY MD DATE OF SERVICE: 12/31/18 Discharge Plan Patient Name: ANNEL NUNEZ Facility: [facility]:[place] : 1945 Planned Disposition: Home with Home Health and Infusion Serv Anticipated Discharge Date: Discharge Date: Expected LOS: Initial Reviewer: [id number] Initial Review Date: 12/27/2018 Generated: 12/31/18 5:41 pm DCP- Discharge Planning Updated by [email or web address]: Dacia Dumont on 12/29/18 1:[address] PACHECO SPOKE W/ CM THIS EARLY AM. HE WILL BE REFERRING THE PATIENT TO DR EBONI CAMACHO AN ONCOLOGY HEAD AND NECK SURGEON LOCATED IN [place]. HE WILL PERSONALLY CALL DR BRICENO ON MONDAY TO EXPEDIATE THE REFERRAL. CM ADVISED THE PATIENT. CM CALLED [facility] AND REQUESTED THE PATIENT'S FILMS ON DISC. RADIOLOGY WILL DELIVER THE DISC TO THE UNIT ON MONDAY. PACKET W/ CLINICAL INFORMATION PREPARED. CM SPOKE W/ RESPIRATORY THERAPIST, ARUN, REGARDING PATIENT TEACHING. HE BEGAN TEACHING W/ THE PATIENT THIS AM. HE WILL DOCUMENT SUBJECT AND PROGRESS. SEGUNDO SPOKE WITH THE PRIMARY NURSE, SHAGUFTA, TO UPDATE. DISCUSSED TEACHING NEEDS. SHE ALSO IS FAMILIAR W/ DR BRICENO AND WILL DISCUSS WITH THE PATIENT IS HE HAS ANY CONCERNS OR QUESTIONS. STATED THE PATIENT MAYBE DISCHARGE TO HOME W/ GEORGE. CM WILL FOLLOW UP WITH THE PATIENT AND HIS SISTER REGARDING HOME HEALTH SERVICES AND PROVIDERS. CM RECEIVED CM CONSULT. INITIAL ASSESSMENT WAS DONE Monday12/28/18. CM FOLLOWING FOR DCP NEEDS. DCP- Discharge Planning Updated by [id number]: Selin Vides on 12/28/18 5:[address] CM received call from Dr. Pacheco that patient is going to need laryngectomy. He states that the patient and sister will need teaching on trach care and tube feedings prior to discharge. He states that he will most likely need home health. He states that he wants when the patient is discharged to go see MD in [place] for laryngectomy. within the same week. Planning on discharge early next week. CM wasn't able to get in touch with patients sister for [facility] for Home Health services. CM will continue to follow and assist as needed with discharge planning / needs. DCP- Discharge Planning Updated by [id number]: Selin Vides on 12/28/18 5:[address] LATE ENTRY 12/27/18 @ 1300 Patient Name: ANNEL NUNEZ Admission Status: ER Accout number: [id number] Admission Date: 12-24-2018 : 1945 Admission Diagnosis:MALIGNANT NEOPLASM OF GLOTTIS Attending: DANNI TAY Current LOS: 4 Anticipated DC Date: Planned Disposition: Home with Home Health and Infusion Serv Primary Insurance: [employer] CHO[employer] PPO [facility] Discharge Planning Comments: CM met with patient at bedside he was able to mouth and nod his head to answer questions. He states he plans on living with his sister upon discharge. Has no medical equipment or previous home health services. Patient gave CM permission to call sister Tiff for any information needed. CM will continue to follow and assist as needed with discharge planning / needs. Sock Examiner: Selin Vides DCPIA - Discharge Planning Initial Assessment Updated by [id number]: Selin Vides on 12/28/18 6:05 pm * Is the patient Alert and Oriented? Yes * PCP NO PCP * Pharmacy DENIES HAVING A PHARMACY * Preadmission Environment Home Alone * ADLs Independent * Equipment None * List name and contact numbers for known caregivers / representatives who currently or will assist patient after discharge: TIFF COLIN - - [phone] * Verbal permission to speak to the caregivers and representatives has been obtained from the patient. Yes * Community resources currently utilized None * Additional services required to return to the preadmission environment? No * Can the patient safely return to the preadmission environment? Yes * Has this patient been hospitalized within the prior 30 days at any hospital? No Last DP export: 12/31/18 1:58 p Patient Name: ANNEL NUNEZ Page 16881 at 1642 All edits/amendments must be made on the electronic document DICTATION DATE: 12/31/181640 DESIGN MAKER: JEAN 12/31/181640 RPT#: [id number] DC DATE: STATUS: ADM IN [facility] [address] [place] [address] END OF REPORT
[2018-12-31 16:47] VITALS: BP 157/63
--- NOTE | 2018-12-31 16:50 | MORECARE ---
CASE MANAGEMENT DISCHARGE SUMMARY PATIENT: ANNEL NUNEZ UNIT: [id number] ADM DATE: 12/24/18 AGE: 73 : 46 SEX: M ROOM/BED: D.2216 AUTHOR: ALICE,DOC PHYSICIAN: REFERRING PHYSICIAN: DANNI TAY MD DATE OF SERVICE: 12/31/18 Discharge Plan Patient Name: ANNEL NUNEZ Facility: [facility]:[place] : 1945 Planned Disposition: Home with Home Health and Infusion Serv Anticipated Discharge Date: Discharge Date: Expected LOS: Initial Reviewer: [id number] Initial Review Date: 12/27/2018 Generated: 12/31/18 5:50 pm Comments DCP- Discharge Planning Updated by [email or web address]: Macrina Moreno on 12/31/18 3:[address] Pacheco this AM, he states he is ready for discharge if we can get home health set up. I called and spoke with patient and his sister (who he will be discharging home to) sister address is [address] [place] [address] in [facility]. MAX with [place] , They will be able to accept the patient. Walk test ordered and he will not need O2 when he is discharged. He has a peg tube, but since he is eating insurance will not cover his peg nutrition. CM will have trach equipment set up for patient prior to discharge. IMM served and explained. CM to follow and assist with DC plans DCP- Discharge Planning Updated by [id number]: Dacia Dumont on 12/29/18 1:[address] PACHECO SPOKE W/ CM THIS EARLY AM. HE WILL BE REFERRING THE PATIENT TO DR EBONI CAMACHO AN ONCOLOGY HEAD AND NECK SURGEON LOCATED IN [place]. HE WILL PERSONALLY CALL DR BRICENO ON MONDAY TO EXPEDIATE THE REFERRAL. CM ADVISED THE PATIENT. CM CALLED [facility] AND REQUESTED THE PATIENT'S FILMS ON DISC. RADIOLOGY WILL DELIVER THE DISC TO THE UNIT ON MONDAY. PACKET W/ CLINICAL INFORMATION PREPARED. SEGUNDO SPOKE W/ RESPIRATORY THERAPIST, ARUN, REGARDING PATIENT TEACHING. HE BEGAN TEACHING W/ THE PATIENT THIS AM. HE WILL DOCUMENT SUBJECT AND PROGRESS. SEGUNDO SPOKE WITH THE PRIMARY NURSE, SHAGUFTA, TO UPDATE. DISCUSSED TEACHING NEEDS. SHE ALSO IS FAMILIAR W/ DR BRICENO AND WILL DISCUSS WITH THE PATIENT IS HE HAS ANY CONCERNS OR QUESTIONS. STATED THE PATIENT MAYBE DISCHARGE TO HOME W/ GEORGE. CM WILL FOLLOW UP WITH THE PATIENT AND HIS SISTER REGARDING HOME HEALTH SERVICES AND PROVIDERS. CM RECEIVED CM CONSULT. INITIAL ASSESSMENT WAS DONE Monday12/28/18. CM FOLLOWING FOR DCP NEEDS. DCP- Discharge Planning Updated by [id number]: Selin Vides on 12/28/18 5:[address] CM received call from Dr. Pacheco that patient is going to need laryngectomy. He states that the patient and sister will need teaching on trach care and tube feedings prior to discharge. He states that he will most likely need home health. He states that he wants when the patient is discharged to go see MD in [place] for laryngectomy. within the same week. Planning on discharge early next week. CM wasn't able to get in touch with patients sister for [place] for Home Health services. CM will continue to follow and assist as needed with discharge planning / needs. DCP- Discharge Planning Updated by [id number]: Selin Vides on 12/28/18 5:[address] LATE ENTRY 12/27/18 @ 1300 Patient Name: ANNEL NUNEZ Admission Status: ER Accout number: [id number] Admission Date: 12-24-2018 : 1945 Admission Diagnosis:MALIGNANT NEOPLASM OF GLOTTIS Attending: DANNI TAY Current LOS: 4 Anticipated DC Date: Planned Disposition: Home with Home Health and Infusion Serv Primary Insurance: [employer] CHOICE PPO [facility] Discharge Planning Comments: CM met with patient at bedside he was able to mouth and nod his head to answer questions. He states he plans on living with his sister upon discharge. Has no medical equipment or previous home health services. Patient gave CM permission to call sister Tiff for any information needed. CM will continue to follow and assist as needed with discharge planning / needs. Machine Joint Cutter: Selin Vides DCPIA - Discharge Planning Initial Assessment Updated by [email or web address]: Selin Vides on 12/28/18 6:05 pm * Is the patient Alert and Oriented? Yes * PCP NO PCP * Pharmacy DENIES HAVING A PHARMACY * Preadmission Environment Home Alone * ADLs Independent * Equipment None * List name and contact numbers for known caregivers / representatives who currently or will assist patient after discharge: TIFF CLOIN [facility] [phone] * Verbal permission to speak to the caregivers and representatives has been obtained from the patient. Yes * Community resources currently utilized None * Additional services required to return to the preadmission environment? No * Can the patient safely return to the preadmission environment? Yes * Has this patient been hospitalized within the prior 30 days at any hospital? No Coverage Notice Reviewer: [id number] Luis A Moreno Notice Issued Date-Time: 12/31/2018 14:00 Notice Type: IM Discharge Notice Notice Delivered To: Patient Relationship to Patient: Globe Mounter Name: Delivery Method: HAND - Hand Delivered Samanta Days: Prior Verbal Notification: Recipient Understood Notice: Yes Recipient Signature: Yes Med Rec Note Co-signed by Attending: Coverage Notice Comment: Last DP export: 12/31/18 3:42 p Patient Name: ANNEL NUNEZ Page [id number] at 1650 All edits/amendments must be made on the electronic document DICTATION DATE: 12/31/181649 SUPERVISOR LAMP SHADES: JEAN 12/31/181649 RPT#: [id number] DC DATE: STATUS: ADM IN [facility] [address] [place] [address] END OF REPORT
[2018-12-31 21:01] VITALS: BP 146/80
[2019-01-01 01:05] VITALS: BP 154/84
[2019-01-01 05:37] VITALS: BP 150/74
[2019-01-01 05:38] LABS: BASOPHILS 0.2 % (0-2); HEMATOCRIT 38.7 % (42.0-54.0); HEMOGLOBIN 13.2 g/dL (13.5-17.5); IMMATURE GRANULOCYTES 0.6 % (0-5); LYMPHOCYTES 18.3 % (15-50); MCH 32.5 pg (26.0-34.0); MCHC 34.1 g/dL (31.0-37.0); MCV 95.3 fL (80.0-100.0); MEAN PLATELET VOLUME 9.7 fL (7.4-10.4); MONOCYTES 8.5 % (2-11); NEUTROPHILS 69.4 % (40-80); PLATELET COUNT 212 10x3/uL (130-400); RBC 4.06 10x6/uL (4.20-6.10); RDW 13.5 % (11.5-14.5); WBC 12.5 10x3/uL (4.8-10.8)
[2019-01-01 05:53] LABS: CALC OSMOLALITY 281 mosm/kg (275-300); CALCIUM 8.5 mg/dL (8.5-10.1); CARBON DIOXIDE 32.2 mmol/L (21.0-32.0); CHLORIDE - SERUM 98 mmol/L (98-107); CREATININE - SERUM 0.9 mg/dL (0.6-1.3); GLUCOSE 145 mg/dL (74-106); POTASSIUM - SERUM 3.4 mmol/L (3.5-5.1); SODIUM 138 mmol/L (136-145); UREA NITROGEN 20 mg/dL (7-18); eGFR NON AFRICAN AMERICAN 88 mL/min (90-120)
[2019-01-01 08:57] VITALS: BP 153/60
--- NOTE | 2019-01-01 12:26 | MORECARE ---
CASE MANAGEMENT DISCHARGE SUMMARY PATIENT: ANNEL NUNEZ UNIT: [id number] ADM DATE: 12/24/18 AGE: 73 : 46 SEX: M ROOM/BED: D.2216 AUTHOR: ALICE,DOC PHYSICIAN: REFERRING PHYSICIAN: DANNI TAY MD DATE OF SERVICE: 01/01/19 Discharge Plan Patient Name: ANNEL NUNEZ Facility: [facility]:[place] : 1945 Planned Disposition: Home with Home Health and Infusion Serv Anticipated Discharge Date: Discharge Date: Expected LOS: Initial Reviewer: [id number] Initial Review Date: 12/27/2018 Generated: 01/01/19 1:26 pm Comments DCP- Discharge Planning Updated by [email or web address]: Macrina Moreno on 12/31/18 3:[address] Pacheco this AM, he states he is ready for discharge if we can get home health set up. I called and spoke with patient and his sister (who he will be discharging home to) sister address is [address] [place] [address] in [facility]. MAX with [place] , They will be able to accept the patient. Walk test ordered and he will not need O2 when he is discharged. He has a peg tube, but since he is eating insurance will not cover his peg nutrition. CM will have trach equipment set up for patient prior to discharge. IMM served and explained. CM to follow and assist with DC plans DCP- Discharge Planning Updated by [id number]: aDcia Dumont on 12/29/18 1:[address] PACHECO SPOKE W/ CM THIS EARLY AM. HE WILL BE REFERRING THE PATIENT TO DR EBONI CAMACHO AN ONCOLOGY HEAD AND NECK SURGEON LOCATED IN [place]. HE WILL PERSONALLY CALL DR BRICENO ON MONDAY TO EXPEDIATE THE REFERRAL. CM ADVISED THE PATIENT. CM CALLED [facility] AND REQUESTED THE PATIENT'S FILMS ON DISC. RADIOLOGY WILL DELIVER THE DISC TO THE UNIT ON MONDAY. PACKET W/ CLINICAL INFORMATION PREPARED. SEGUNDO SPOKE W/ RESPIRATORY THERAPIST, ARUN, REGARDING PATIENT TEACHING. HE BEGAN TEACHING W/ THE PATIENT THIS AM. HE WILL DOCUMENT SUBJECT AND PROGRESS. SEGUNOD SPOKE WITH THE PRIMARY NURSE, SHAGUFTA, TO UPDATE. DISCUSSED TEACHING NEEDS. SHE ALSO IS FAMILIAR W/ DR BRICENO AND WILL DISCUSS WITH THE PATIENT IS HE HAS ANY CONCERNS OR QUESTIONS. STATED THE PATIENT MAYBE DISCHARGE TO HOME W/ GEORGE. CM WILL FOLLOW UP WITH THE PATIENT AND HIS SISTER REGARDING HOME HEALTH SERVICES AND PROVIDERS. CM RECEIVED CM CONSULT. INITIAL ASSESSMENT WAS DONE Monday12/28/18. CM FOLLOWING FOR DCP NEEDS. DCP- Discharge Planning Updated by [id number]: Selin Vides on 12/28/18 5:[address] CM received call from Dr. Pacheco that patient is going to need laryngectomy. He states that the patient and sister will need teaching on trach care and tube feedings prior to discharge. He states that he will most likely need home health. He states that he wants when the patient is discharged to go see MD in [place] for laryngectomy. within the same week. Planning on discharge early next week. CM wasn't able to get in touch with patients sister for [place] for Home Health services. CM will continue to follow and assist as needed with discharge planning / needs. DCP- Discharge Planning Updated by [email or web address]: Selin Vides on 12/28/18 5:[address] LATE ENTRY 12/27/18 @ 1300 Patient Name: ANNEL NUNEZ Admission Status: ER Accout number: [id number] Admission Date: 12-24-2018 : 1945 Admission Diagnosis:MALIGNANT NEOPLASM OF GLOTTIS Attending: DANNI TAY Current LOS: 4 Anticipated DC Date: Planned Disposition: Home with Home Health and Infusion Serv Primary Insurance: [employer] CHOICE PPO [facility] Discharge Planning Comments: CM met with patient at bedside he was able to mouth and nod his head to answer questions. He states he plans on living with his sister upon discharge. Has no medical equipment or previous home health services. Patient gave CM permission to call sister Tiff for any information needed. CM will continue to follow and assist as needed with discharge planning / needs. Chemical Plant Technical Director: Selin Vides DCPIA - Discharge Planning Initial Assessment Updated by [id number]: Selin Vides on 12/28/18 6:05 pm * Is the patient Alert and Oriented? Yes * PCP NO PCP * Pharmacy DENIES HAVING A PHARMACY * Preadmission Environment Home Alone * ADLs Independent * Equipment None * List name and contact numbers for known caregivers / representatives who currently or will assist patient after discharge: TIFF COLIN [facility] [phone] * Verbal permission to speak to the caregivers and representatives has been obtained from the patient. Yes * Community resources currently utilized None * Additional services required to return to the preadmission environment? No * Can the patient safely return to the preadmission environment? Yes * Has this patient been hospitalized within the prior 30 days at any hospital? No External Providers External Provider: [facility] Next Contact Date: Service Request Date: Service Type: Resolution: Reviewer: Comments: Coverage Notice Reviewer: [id number] Luis A Moreno Notice Issued Date-Time: 12/31/2018 14:00 Notice Type: IM Discharge Notice Notice Delivered To: Patient Relationship to Patient: Registered Nurse Behavioral Health Name: Delivery Method: HAND - Hand Delivered Samanta Days: Prior Verbal Notification: Recipient Understood Notice: Yes Recipient Signature: Yes Med Rec Note Co-signed by Attending: Coverage Notice Comment: Last DP export: 12/31/18 3:50 p Patient Name: ANNEL NUNEZ Page 88099 at 1226 All edits/amendments must be made on the electronic document DICTATION DATE: 01/01/19 1226 COLLECTION CLERK: JEAN 01/01/19 1226 RPT#: [id number] DC DATE: STATUS: ADM IN [facility] [address] [place] [address] END OF REPORT
--- NOTE | 2019-01-01 12:40 | MORECARE ---
CASE MANAGEMENT DISCHARGE SUMMARY PATIENT: ANNEL NUNEZ UNIT: [id number] ADM DATE: 12/24/18 AGE: 73 : 46 SEX: M ROOM/BED: D.2216 AUTHOR: ALICE,DOC PHYSICIAN: REFERRING PHYSICIAN: DANNI TAY MD DATE OF SERVICE: 01/01/19 Discharge Plan Patient Name: ANNEL NUNEZ Facility: [facility]:[place] : 1945 Planned Disposition: Home with Home Health and Infusion Serv Anticipated Discharge Date: Discharge Date: Expected LOS: Initial Reviewer: [email or web address] Initial Review Date: 12/27/2018 Generated: 01/01/19 1:40 pm Comments DCP- Discharge Planning Updated by [email or web address]: Macrina Moreno on 12/31/18 3:[address] Sp[address] Pacheco this AM, he states he is ready for discharge if we can get home health set up. I called and spoke with patient and his sister (who he will be discharging home to) sister address is [address] [place] [address] in [facility]. MAX with [place] , They will be able to accept the patient. Walk test ordered and he will not need O2 when he is discharged. He has a peg tube, but since he is eating insurance will not cover his peg nutrition. CM will have trach equipment set up for patient prior to discharge. IMM served and explained. CM to follow and assist with DC plans DCP- Discharge Planning Updated by [email or web address]: Dacia Dumont on 12/29/18 1:[address] PACHECO SPOKE W/ CM THIS EARLY AM. HE WILL BE REFERRING THE PATIENT TO DR EBONI CAMACHO AN ONCOLOGY HEAD AND NECK SURGEON LOCATED IN [place]. HE WILL PERSONALLY CALL DR BRICENO ON MONDAY TO EXPEDIATE THE REFERRAL. CM ADVISED THE PATIENT. CM CALLED [facility] AND REQUESTED THE PATIENT'S FILMS ON DISC. RADIOLOGY WILL DELIVER THE DISC TO THE UNIT ON MONDAY. PACKET W/ CLINICAL INFORMATION PREPARED. SEGUNDO SPOKE W/ RESPIRATORY THERAPIST, ARUN, REGARDING PATIENT TEACHING. HE BEGAN TEACHING W/ THE PATIENT THIS AM. HE WILL DOCUMENT SUBJECT AND PROGRESS. SEGUNDO SPOKE WITH THE PRIMARY NURSE, SHAGUFTA, TO UPDATE. DISCUSSED TEACHING NEEDS. SHE ALSO IS FAMILIAR W/ DR BRICENO AND WILL DISCUSS WITH THE PATIENT IS HE HAS ANY CONCERNS OR QUESTIONS. STATED THE PATIENT MAYBE DISCHARGE TO HOME W/ GEORGE. CM WILL FOLLOW UP WITH THE PATIENT AND HIS SISTER REGARDING HOME HEALTH SERVICES AND PROVIDERS. CM RECEIVED CM CONSULT. INITIAL ASSESSMENT WAS DONE Monday12/28/18. CM FOLLOWING FOR DCP NEEDS. DCP- Discharge Planning Updated by [id number]: Selin Vides on 12/28/18 5:[address] CM received call from Dr. Pacheco that patient is going to need laryngectomy. He states that the patient and sister will need teaching on trach care and tube feedings prior to discharge. He states that he will most likely need home health. He states that he wants when the patient is discharged to go see MD in [place] for laryngectomy. within the same week. Planning on discharge early next week. CM wasn't able to get in touch with patients sister for [place] for Home Health services. CM will continue to follow and assist as needed with discharge planning / needs. DCP- Discharge Planning Updated by [id number]: Selin Vides on 12/28/18 5:[address] LATE ENTRY 12/27/18 @ 1300 Patient Name: ANNEL NUNEZ Admission Status: ER Accout number: [id number] Admission Date: 12-24-2018 : 1945 Admission Diagnosis:MALIGNANT NEOPLASM OF GLOTTIS Attending: DANNI TAY Current LOS: 4 Anticipated DC Date: Planned Disposition: Home with Home Health and Infusion Serv Primary Insurance: [employer] CHOICE PPO [facility] Discharge Planning Comments: CM met with patient at bedside he was able to mouth and nod his head to answer questions. He states he plans on living with his sister upon discharge. Has no medical equipment or previous home health services. Patient gave CM permission to call sister Tiff for any information needed. CM will continue to follow and assist as needed with discharge planning / needs. Seat Covers Trimmer: Selin Vides DCPIA - Discharge Planning Initial Assessment Updated by [id number]: Selin Vides on 12/28/18 6:05 pm * Is the patient Alert and Oriented? Yes * PCP NO PCP * Pharmacy DENIES HAVING A PHARMACY * Preadmission Environment Home Alone * ADLs Independent * Equipment None * List name and contact numbers for known caregivers / representatives who currently or will assist patient after discharge: TIFF COLIN [facility] [phone] * Verbal permission to speak to the caregivers and representatives has been obtained from the patient. Yes * Community resources currently utilized None * Additional services required to return to the preadmission environment? No * Can the patient safely return to the preadmission environment? Yes * Has this patient been hospitalized within the prior 30 days at any hospital? No External Providers External Provider: [facility] Next Contact Date: Service Request Date: Service Type: Resolution: Reviewer: Comments: Coverage Notice Reviewer: [id number] Luis A Moreno Notice Issued Date-Time: 12/31/2018 14:00 Notice Type: IM Discharge Notice Notice Delivered To: Patient Relationship to Patient: Director Meetings Name: Delivery Method: HAND - Hand Delivered Samanta Days: Prior Verbal Notification: Recipient Understood Notice: Yes Recipient Signature: Yes Med Rec Note Co-signed by Attending: Coverage Notice Comment: Last DP export: 01/01/19 11:26 a Patient Name: ANNEL NUNEZ Page 17333 at 1240 All edits/amendments must be made on the electronic document DICTATION DATE: 01/01/19 1240 DIRECTOR OF AUDIOLOGY: JEAN 01/01/19 1240 RPT#: [id number] DC DATE: STATUS: ADM IN [facility] [address] [place] [address] END OF REPORT
[2019-01-01] MEDS ORDERED: LISINOPRIL10 MG PO (14:12)
[2019-01-01] MEDS ORDERED: THERMOTABS 1 GM1 GM PEG (14:12)
[2019-01-01] MEDS ORDERED: PROTONIX40 MG PO (14:13)
[2019-01-01] MEDS ORDERED: LASIX40 MG PO (14:13)
[2019-01-01] MEDS ORDERED: ROBITUSSIN DM 110 ML PO (14:13)
[2019-01-01] MEDS ORDERED: IPRAT-ALBUT 0.5-3 ML INH (14:13)
[2019-01-01] MEDS ORDERED: KLOR-CON 1010 MEQ PO (14:14)
--- NOTE | 2019-01-01 15:09 | MORECARE ---
CASE MANAGEMENT DISCHARGE SUMMARY PATIENT: ANNEL NUNEZ UNIT: [id number] ADM DATE: 12/24/18 AGE: 73 : 46 SEX: M ROOM/BED: D.2216 AUTHOR: ALICE,DOC PHYSICIAN: REFERRING PHYSICIAN: DANNI TAY MD DATE OF SERVICE: 01/01/19 Discharge Plan Patient Name: ANNEL NUNEZ Facility: [facility]:[place] : 1945 Planned Disposition: Home with Home Health and Infusion Serv Anticipated Discharge Date: Discharge Date: Expected LOS: Initial Reviewer: [id number] Initial Review Date: 12/27/2018 Generated: 01/01/19 4:08 pm Comments DCP- Discharge Planning Updated by [email or web address]: Macrina Moreno on 01/01/19 2:[address] [facility]. [facility] will be setting up the suction and all other supplies at the sisters home today when he is discharged home today. [place] will follow him with his PEG tube feedings. Teaching was done at the bedside with patient and sister with Trach care, suction ect by our RT, Omayra. Also peg tube feeding and instructions was completed with Wolf at [place]. Patient's will follow up with a Dr Briceno in [place] on Thursday 01/04 @ 2:00. CM will continue follow and assist with DC planning as needed DCP- Discharge Planning Updated by [id number]: Macrina Moreno on 12/31/18 3:[address] Pacheco this AM, he states he is ready for discharge if we can get home health set up. I called and spoke with patient and his sister (who he will be discharging home to) sister address [place] [address] [address] in [place]. MAX with [place] , They will be able to accept the patient. Walk test ordered and he will not need O2 when he is discharged. He has a peg tube, but since he is eating insurance will not cover his peg nutrition. CM will have trach equipment set up for patient prior to discharge. IMM served and explained. CM to follow and assist with DC plans DCP- Discharge Planning Updated by [id number]: Dacia Dumont on 12/29/18 1:[address] PACHECO SPOKE W/ CM THIS EARLY AM. HE WILL BE REFERRING THE PATIENT TO DR EBONI CAMACHO AN ONCOLOGY HEAD AND NECK SURGEON LOCATED IN [place]. HE WILL PERSONALLY CALL DR BRICENO ON MONDAY TO EXPEDIATE THE REFERRAL. CM ADVISED THE PATIENT. CM CALLED [facility] AND REQUESTED THE PATIENT'S FILMS ON DISC. RADIOLOGY WILL DELIVER THE DISC TO THE UNIT ON MONDAY. PACKET W/ CLINICAL INFORMATION PREPARED. CM SPOKE W/ RESPIRATORY THERAPIST, ARUN, REGARDING PATIENT TEACHING. HE BEGAN TEACHING W/ THE PATIENT THIS AM. HE WILL DOCUMENT SUBJECT AND PROGRESS. CM SPOKE WITH THE PRIMARY NURSE, SHAGUFTA, TO UPDATE. DISCUSSED TEACHING NEEDS. SHE ALSO IS FAMILIAR W/ DR BRICENO AND WILL DISCUSS WITH THE PATIENT IS HE HAS ANY CONCERNS OR QUESTIONS. STATED THE PATIENT MAYBE DISCHARGE TO HOME W/ GEORGE. CM WILL FOLLOW UP WITH THE PATIENT AND HIS SISTER REGARDING HOME HEALTH SERVICES AND PROVIDERS. CM RECEIVED CM CONSULT. INITIAL ASSESSMENT WAS DONE Monday12/28/18. CM FOLLOWING FOR DCP NEEDS. DCP- Discharge Planning Updated by [email or web address]: Selin Vides on 12/28/18 5:[address] CM received call from Dr. Pacheco that patient is going to need laryngectomy. He states that the patient and sister will need teaching on trach care and tube feedings prior to discharge. He states that he will most likely need home health. He states that he wants when the patient is discharged to go see MD in [place] for laryngectomy. within the same week. Planning on discharge early next week. CM wasn't able to get in touch with patients sister for [facility] for Home Health services. CM will continue to follow and assist as needed with discharge planning / needs. DCP- Discharge Planning Updated by [id number]: Selin Vides on 12/28/18 5:[address] LATE ENTRY 12/27/18 @ 1300 Patient Name: ANNEL NUNEZ Admission Status: ER Accout number: [id number] Admission Date: 12-24-2018 : 1945 Admission Diagnosis:MALIGNANT NEOPLASM OF GLOTTIS Attending: DANNI TAY Current LOS: 4 Anticipated DC Date: Planned Disposition: Home with Home Health and Infusion Serv Primary Insurance: [employer] CHOICE PPO [facility] Discharge Planning Comments: CM met with patient at bedside he was able to mouth and nod his head to answer questions. He states he plans on living with his sister upon discharge. Has no medical equipment or previous home health services. Patient gave CM permission to call sister Tiff for any information needed. CM will continue to follow and assist as needed with discharge planning / needs. Real Estate Clerk: Selin CAMERON - Discharge Planning Initial Assessment Updated by [id number]: Selin Vides on 12/28/18 6:05 pm * Is the patient Alert and Oriented? Yes * PCP NO PCP * Pharmacy DENIES HAVING A PHARMACY * Preadmission Environment Home Alone * ADLs Independent * Equipment None * List name and contact numbers for known caregivers / representatives who currently or will assist patient after discharge: TIFF COLIN - - [phone] * Verbal permission to speak to the caregivers and representatives has been obtained from the patient. Yes * Community resources currently utilized None * Additional services required to return to the preadmission environment? No * Can the patient safely return to the preadmission environment? Yes * Has this patient been hospitalized within the prior 30 days at any hospital? No Coverage Notice Reviewer: [email or web address] Luis A Moreno Notice Issued Date-Time: 12/31/2018 14:00 Notice Type: IM Discharge Notice Notice Delivered To: Patient Relationship to Patient: Rotary Drum Dyer Name: Delivery Method: HAND - Hand Delivered Samanta Days: Prior Verbal Notification: Recipient Understood Notice: Yes Recipient Signature: Yes Med Rec Note Co-signed by Attending: Coverage Notice Comment: Last DP export: 01/01/19 11:40 a Patient Name: ANNEL NUNEZ Page 61746 at 1509 All edits/amendments must be made on the electronic document DICTATION DATE: 01/01/19 1508 ENGINEER SPECIALIST: JEAN 01/01/19 1508 RPT#: [id number] DC DATE: STATUS: ADM IN [facility] [address] [place] [address] END OF REPORT
--- NOTE | 2019-01-01 15:18 | MORECARE ---
CASE MANAGEMENT DISCHARGE SUMMARY PATIENT: ANNEL NUNEZ UNIT: [id number] ADM DATE: 12/24/18 AGE: 73 : 46 SEX: M ROOM/BED: D.2216 AUTHOR: ALICE,DOC PHYSICIAN: REFERRING PHYSICIAN: DANNI TAY MD DATE OF SERVICE: 01/01/19 Discharge Plan Patient Name: ANNEL NUNEZ Facility: [facility]:[place] : 1945 Planned Disposition: Home with Home Health and Infusion Serv Anticipated Discharge Date: Discharge Date: Expected LOS: Initial Reviewer: [email or web address] Initial Review Date: 12/27/2018 Generated: 01/01/19 4:17 pm Comments DCP- Discharge Planning Updated by [email or web address]: Macrina Moreno on 01/01/19 2:[address] [facility]. [facility] will be setting up the suction and all other supplies at the sisters home today when he is discharged home today. [place] will follow him with his PEG tube feedings. Teaching was done at the bedside with patient and sister with Trach care, suction ect by our RT, Omayra. Also peg tube feeding and instructions was completed with Wolf at [place]. Patient's will follow up with a Dr Briceno in [place] on Thursday 01/04 @ 2:00. CM will continue follow and assist with DC planning as needed DCP- Discharge Planning Updated by [id number]: Macrina Moreno on 12/31/18 3:[address] Pacheco this AM, he states he is ready for discharge if we can get home health set up. I called and spoke with patient and his sister (who he will be discharging home to) sister address [place] [address] [address] in [place]. MAX with [place] , They will be able to accept the patient. Walk test ordered and he will not need O2 when he is discharged. He has a peg tube, but since he is eating insurance will not cover his peg nutrition. CM will have trach equipment set up for patient prior to discharge. IMM served and explained. CM to follow and assist with DC plans DCP- Discharge Planning Updated by [email or web address]: Dacia Dumont on 12/29/18 1:[address] PACHECO SPOKE W/ CM THIS EARLY AM. HE WILL BE REFERRING THE PATIENT TO DR EBONI CAMACHO AN ONCOLOGY HEAD AND NECK SURGEON LOCATED IN [place]. HE WILL PERSONALLY CALL DR BRICENO ON MONDAY TO EXPEDIATE THE REFERRAL. CM ADVISED THE PATIENT. CM CALLED MEDICAL IMAGING AND REQUESTED THE PATIENT'S FILMS ON DISC. RADIOLOGY WILL DELIVER THE DISC TO THE UNIT ON MONDAY. PACKET W/ CLINICAL INFORMATION PREPARED. CM SPOKE W/ RESPIRATORY THERAPIST, ARUN, REGARDING PATIENT TEACHING. HE BEGAN TEACHING W/ THE PATIENT THIS AM. HE WILL DOCUMENT SUBJECT AND PROGRESS. CM SPOKE WITH THE PRIMARY NURSE, SHAGUFTA, TO UPDATE. DISCUSSED TEACHING NEEDS. SHE ALSO IS FAMILIAR W/ DR BRICENO AND WILL DISCUSS WITH THE PATIENT IS HE HAS ANY CONCERNS OR QUESTIONS. STATED THE PATIENT MAYBE DISCHARGE TO HOME W/ [place]. CM WILL FOLLOW UP WITH THE PATIENT AND HIS SISTER REGARDING HOME HEALTH SERVICES AND PROVIDERS. CM RECEIVED CM CONSULT. INITIAL ASSESSMENT WAS DONE Monday12/28/18. CM FOLLOWING FOR DCP NEEDS. DCP- Discharge Planning Updated by [id number]: Selin Vides on 12/28/18 5:[address] CM received call from Dr. Pacheco that patient is going to need laryngectomy. He states that the patient and sister will need teaching on trach care and tube feedings prior to discharge. He states that he will most likely need home health. He states that he wants when the patient is discharged to go see MD in [place] for laryngectomy. within the same week. Planning on discharge early next week. CM wasn't able to get in touch with patients sister for [facility] for Home Health services. CM will continue to follow and assist as needed with discharge planning / needs. DCP- Discharge Planning Updated by [id number]: Selin Vides on 12/28/18 5:[address] LATE ENTRY 12/27/18 @ 1300 Patient Name: ANNEL NUNEZ Admission Status: ER Accout number: [id number] Admission Date: 12-24-2018 : 1945 Admission Diagnosis:MALIGNANT NEOPLASM OF GLOTTIS Attending: DANNI TAY Current LOS: 4 Anticipated DC Date: Planned Disposition: Home with Home Health and Infusion Serv Primary Insurance: HUMANA CHOICE PPO MCR [facility] Discharge Planning Comments: CM met with patient at bedside he was able to mouth and nod his head to answer questions. He states he plans on living with his sister upon discharge. Has no medical equipment or previous home health services. Patient gave CM permission to call sister Tiff for any information needed. CM will continue to follow and assist as needed with discharge planning / needs. Cattle Shipper: Selin CAMERON - Discharge Planning Initial Assessment Updated by [email or web address]: Selin Vides on 12/28/18 6:05 pm * Is the patient Alert and Oriented? Yes * PCP NO PCP * Pharmacy DENIES HAVING A PHARMACY * Preadmission Environment Home Alone * ADLs Independent * Equipment None * List name and contact numbers for known caregivers / representatives who currently or will assist patient after discharge: TIFF COLIN - - [phone] * Verbal permission to speak to the caregivers and representatives has been obtained from the patient. Yes * Community resources currently utilized None * Additional services required to return to the preadmission environment? No * Can the patient safely return to the preadmission environment? Yes * Has this patient been hospitalized within the prior 30 days at any hospital? No Coverage Notice Reviewer: [id number] Luis A Moreno Notice Issued Date-Time: 12/31/2018 14:00 Notice Type: IM Discharge Notice Notice Delivered To: Patient Relationship to Patient: Porter Baggage Name: Delivery Method: HAND - Hand Delivered Samanta Days: Prior Verbal Notification: Recipient Understood Notice: Yes Recipient Signature: Yes Med Rec Note Co-signed by Attending: Coverage Notice Comment: Last DP export: 01/01/19 2:09 p Patient Name: ANNEL NUNEZ Page [id number] at 1518 All edits/amendments must be made on the electronic document DICTATION DATE: 01/01/191516 BIT BENDER: JEAN 01/01/191516 RPT#: [id number] DC DATE: STATUS: ADM IN [facility] [address] [place] [address] END OF REPORT
--- NOTE | 2019-01-03 16:26 | MORECARE ---
CASE MANAGEMENT DISCHARGE SUMMARY PATIENT: ANNEL NUNEZ UNIT: [id number] ADM DATE: 12/24/18 AGE: 73 : 46 SEX: M ROOM/BED: D.2216 AUTHOR: ALICE,DOC PHYSICIAN: REFERRING PHYSICIAN: DANNI TAY MD DATE OF SERVICE: 01/03/19 Discharge Plan Patient Name: ANNEL NUNEZ Facility: [facility]:[place] : 1945 Planned Disposition: Home with Home Health and Infusion Serv Anticipated Discharge Date: Discharge Date: 01/01/2019 Expected LOS: Initial Reviewer: [id number] Initial Review Date: 12/27/2018 Generated: 01/03/19 5:26 pm Comments DCP- Discharge Planning Updated by [id number]: Macrina Moreno on 01/01/19 2:[address] Patient will be discharging home today with [facility]. [facility] will be setting up the suction and all other supplies at the sisters home today when he is discharged home today. [place] will follow him with his PEG tube feedings. Teaching was done at the bedside with patient and sister with Trach care, suction ect by our RT, Omayra. Also peg tube feeding and instructions was completed with Wolf at [place]. Patient's will follow up with a Dr Briceno in [place] on Thursday 01/04 @ 2:00. CM will continue follow and assist with DC planning as needed DCP- Discharge Planning Updated by [id number]: Macrina Moreno on 12/31/18 3:[address] Pacheco this AM, he states he is ready for discharge if we can get home health set up. I called and spoke with patient and his sister (who he will be discharging home to) sister address [place] [address] [address] in [place]. MAX with [place] , They will be able to accept the patient. Walk test ordered and he will not need O2 when he is discharged. He has a peg tube, but since he is eating insurance will not cover his peg nutrition. CM will have trach equipment set up for patient prior to discharge. IMM served and explained. CM to follow and assist with DC plans DCP- Discharge Planning Updated by [id number]: Dacia Dumont on 12/29/18 1:[address] PACHECO SPOKE W/ CM THIS EARLY AM. HE WILL BE REFERRING THE PATIENT TO DR EBONI CAMACHO AN ONCOLOGY HEAD AND NECK SURGEON LOCATED IN [place]. HE WILL PERSONALLY CALL DR BRICENO ON MONDAY TO EXPEDIATE THE REFERRAL. CM ADVISED THE PATIENT. CM CALLED MEDICAL IMAGING AND REQUESTED THE PATIENT'S FILMS ON DISC. RADIOLOGY WILL DELIVER THE DISC TO THE UNIT ON MONDAY. PACKET W/ CLINICAL INFORMATION PREPARED. CM SPOKE W/ RESPIRATORY THERAPIST, ARUN, REGARDING PATIENT TEACHING. HE BEGAN TEACHING W/ THE PATIENT THIS AM. HE WILL DOCUMENT SUBJECT AND PROGRESS. CM SPOKE WITH THE PRIMARY NURSE, SHAGUFTA, TO UPDATE. DISCUSSED TEACHING NEEDS. SHE ALSO IS FAMILIAR W/ DR BRICENO AND WILL DISCUSS WITH THE PATIENT IS HE HAS ANY CONCERNS OR QUESTIONS. STATED THE PATIENT MAYBE DISCHARGE TO HOME W/ [place]. CM WILL FOLLOW UP WITH THE PATIENT AND HIS SISTER REGARDING HOME HEALTH SERVICES AND PROVIDERS. CM RECEIVED CM CONSULT. INITIAL ASSESSMENT WAS DONE Monday12/28/18. CM FOLLOWING FOR DCP NEEDS. DCP- Discharge Planning Updated by [email or web address]: Selin Vides on 12/28/18 5:[address] CM received call from Dr. Pacheco that patient is going to need laryngectomy. He states that the patient and sister will need teaching on trach care and tube feedings prior to discharge. He states that he will most likely need home health. He states that he wants when the patient is discharged to go see MD in [place] for laryngectomy. within the same week. Planning on discharge early next week. CM wasn't able to get in touch with patients sister for [facility] for Home Health services. CM will continue to follow and assist as needed with discharge planning / needs. DCP- Discharge Planning Updated by [id number]: Selin Vides on 12/28/18 5:[address] LATE ENTRY 12/27/18 @ 1300 Patient Name: ANNEL NUNEZ Admission Status: ER Accout number: [id number] Admission Date: 12-24-2018 : 1945 Admission Diagnosis:MALIGNANT NEOPLASM OF GLOTTIS Attending: DANNI TAY Current LOS: 4 Anticipated DC Date: Planned Disposition: Home with Home Health and Infusion Serv Primary Insurance: HUMANA CHOICE PPO [facility] Discharge Planning Comments: CM met with patient at bedside he was able to mouth and nod his head to answer questions. He states he plans on living with his sister upon discharge. Has no medical equipment or previous home health services. Patient gave CM permission to call sister Tiff for any information needed. CM will continue to follow and assist as needed with discharge planning / needs. Environmental Studies Faculty Member: Selin Furr DCPIA - Discharge Planning Initial Assessment Updated by [id number]: Selin Vides on 12/28/18 6:05 pm * Is the patient Alert and Oriented? Yes * PCP NO PCP * Pharmacy DENIES HAVING A PHARMACY * Preadmission Environment Home Alone * ADLs Independent * Equipment None * List name and contact numbers for known caregivers / representatives who currently or will assist patient after discharge: TIFF COLIN - - [phone] * Verbal permission to speak to the caregivers and representatives has been obtained from the patient. Yes * Community resources currently utilized None * Additional services required to return to the preadmission environment? No * Can the patient safely return to the preadmission environment? Yes * Has this patient been hospitalized within the prior 30 days at any hospital? No Coverage Notice Reviewer: [id number] Luis A Moreno Notice Issued Date-Time: 12/31/2018 14:00 Notice Type: IM Discharge Notice Notice Delivered To: Patient Relationship to Patient: Molding Manager Name: Delivery Method: HAND - Hand Delivered Samanta Days: Prior Verbal Notification: Recipient Understood Notice: Yes Recipient Signature: Yes Med Rec Note Co-signed by Attending: Coverage Notice Comment: Last DP export: 01/01/19 2:18 p Patient Name: ANNEL NUNEZ Page [id number] at 1626 All edits/amendments must be made on the electronic document DICTATION DATE: 01/03/19 1625 NURSING MANAGER: JEAN 01/03/19 1625 RPT#: [id number] DC DATE:01/01/19 STATUS: DIS IN [facility] [address] [place] [address] END OF REPORT
--- NOTE | 2019-01-03 16:42 | OP ---
PATIENT NAME: ANNEL NUNEZ MEDICAL RECORD: [id number] :[birth year] LOCATION:D.MS [id number] ADMISSION DATE:12/24/18 SURGEON: PAT CORNEJO MD DATE OF OPERATION: 12/26/2018 PREOPERATIVE DIAGNOSES: 1. Acute malnutrition. 2. Dysphagia. POSTOPERATIVE DIAGNOSES: 1. Acute malnutrition. 2. Dysphagia. 3. LA grade I distal esophagitis. PROCEDURES: 1. Esophagogastroduodenoscopy with antral biopsies to check for H. pylori. 2. Percutaneous endoscopic gastrostomy tube placement, 20-Cypriot. SURGEON: Pat Cornejo MD GEOSCIENCE SPECIALIST: None. BLOOD LOSS: Minimal. ANESTHESIA: Local with IV sedation. COMPLICATIONS: None. The risks, possible complications and alternatives to the procedure were explained to the patient. He elects to proceed. OPERATIVE COURSE: The patient was seen in his ICU bed. IV sedation was induced by the anesthesia staff. A bite block was inserted. The abdomen was sterilely prepped and draped. A gastroscope was inserted into the mouth. It was advanced easily into the hypopharynx. The esophagus was easily intubated as were the stomach and duodenum. Upon withdrawal, retroflexed and angulus views were obtained. Antral biopsies were obtained. I then indented the anterior abdominal wall skin. I was able to visualize this endoscopically. An incision was accomplished to the left upper quadrant. Through the incision, an Angiocath was advanced and I punctured the fundus of the stomach. A wire was advanced. This was grasped with an endoscopic snare and was withdrawn out through the mouth. The wire was attached to a pull-type gastrostomy tube, which was then pulled into place. I then re-endoscoped the patient's esophagus and stomach. There had been no evidence of false passage or perforation. The endoscope was then withdrawn under direct vision. Hub and flange devices were attached. I will plan that we can begin using the gastrostomy tube tomorrow. TRANSINT:[id number] Voice Confirmation ID: [id number] DOCUMENT ID: [id number] OPERATIVE REPORT [id number] ANNEL NUNEZ PAT CORNEJO MD at 1642 CC: DANNI TAY MD and KENDRA CHOWDHURY MD [id number] DICTATION DATE: 12/26/18 1507 WELL TESTER: 12/26/18 1549 DIS IN 01/01/19 [facility] [address] [place] [address]
== END 2019-01-01 16:35 | disposition home health service (06) | DRG 4 ==
LOC: D.ER 18:25 → D.MS 18:50 → D.ICU 18:50 → D.MS 12-29 06:38
PROVIDERS: Internal Medicine Pulmonary Disease; Surgery; ADMIT Internal Medicine Nephrology; ATTEND Internal Medicine Nephrology
PROC: 0B113F4 Bypass Trachea to Cutaneous with Tracheostomy Device, Percutaneous Approach (ICD-10-PCS; 2018-12-24)
PROC: 0CBR8ZX Excision of Epiglottis, Via Natural or Artificial Opening Endoscopic, Diagnostic (ICD-10-PCS; 2018-12-24)
PROC: 0DH68UZ Insertion of Feeding Device into Stomach, Via Natural or Artificial Opening Endoscopic (ICD-10-PCS; 2018-12-24)
PROC: 0DH63UZ Insertion of Feeding Device into Stomach, Percutaneous Approach (ICD-10-PCS; principal; 2018-12-26 14:00)
DX: J96.00 Acute respiratory failure, unspecified whether with hypoxia or hypercapnia (principal); E87.1 Hypo-osmolality and hyponatremia; C32.0 Malignant neoplasm of glottis; R60.1 Generalized edema; N40.0 Benign prostatic hyperplasia without lower urinary tract symptoms; N13.9 Obstructive and reflux uropathy, unspecified; E66.01 Morbid (severe) obesity due to excess calories; N05.9 Unspecified nephritic syndrome with unspecified morphologic changes; F17.200 Nicotine dependence, unspecified, uncomplicated; E11.9 Type 2 diabetes mellitus without complications

== ENCOUNTER 2019-06-13 15:31 | Inpatient (IN) | payer MEDICARE, MEDICAID ==
[~2019-06-13] VITALS: Ht 172.7 cm; Wt 83.3 kg
[~2019-06-13 15:31] MED LIST: IPRAT-ALBUT 0.5-3 ML INH; KLOR-CON 1010 MEQ PO; LASIX40 MG PO; LISINOPRIL10 MG PO; PROTONIX40 MG PO; ROBITUSSIN DM 110 ML PO; THERMOTABS 1 GM1 GM PEG
[2019-06-13] MEDS ORDERED: CIPRO500 MG PO (15:42)
[2019-06-13] MEDS ORDERED: FLOMAX0.4 MG PO (15:42)
[2019-06-13 16:15] LABS: BASOPHILS 0.1 % (0-2); HEMATOCRIT 37.2 % (42.0-54.0); HEMOGLOBIN 12.3 g/dL (13.5-17.5); IMMATURE GRANULOCYTES 0.5 % (0-5); LYMPHOCYTES 4.7 % (15-50); MCH 29.6 pg (26.0-34.0); MCHC 33.1 g/dL (31.0-37.0); MCV 89.4 fL (80.0-100.0); MEAN PLATELET VOLUME 9.6 fL (7.4-10.4); MONOCYTES 2.7 % (2-11); PLATELET COUNT 177 10x3/uL (130-400); RBC 4.16 10x6/uL (4.20-6.10); RDW 15.3 % (11.5-14.5); WBC 18.6 10x3/uL (4.8-10.8)
[2019-06-13 16:37] LABS: ALBUMIN 2.3 g/dL (3.4-5.0); ALKALINE PHOSPHATASE 68 U/L (46-116); ALT (SGPT) 16 U/L (10-68); BILIRUBIN - TOTAL 0.38 mg/dL (0.2-1.3); CALCIUM 8.9 mg/dL (8.5-10.1); CHLORIDE - SERUM 109 mmol/L (98-107); CREATININE - SERUM 7.2 mg/dL (0.6-1.3); GLUCOSE 122 mg/dL (74-106); POTASSIUM - SERUM 5.6 mmol/L (3.5-5.1); PROTEIN - SERUM 6.9 g/dL (6.4-8.2); SODIUM 140 mmol/L (136-145); eGFR NON AFRICAN AMERICAN 8 mL/min (90-120)
[2019-06-13 16:40] LABS: AMYLASE - SERUM 30 U/L (25-115); CALC OSMOLALITY 338 mosm/kg (275-300); LIPASE 157 U/L (73-393); TROPONIN-I < 0.017 ng/mL (0.000-0.060); UREA NITROGEN 177 mg/dL (7-18)
[2019-06-13 17:43] LABS: APPEARANCE CLEAR (CLEAR); BILIRUBIN NEGATIVE (NEGATIVE); COLOR YELLOW (YELLOW); GLUCOSE NEGATIVE (NEGATIVE); KETONE NEGATIVE (NEGATIVE); NITRITE NEGATIVE (NEGATIVE); PROTEIN NEGATIVE (NEGATIVE); SPECIFIC GRAVITY 1.005 (1.005-1.020); UROBILINOGEN NORMAL (NORMAL); WHITE CELLS - URINE 0-5 /hpf (NEGATIVE)
[2019-06-13 17:58] LABS: CREATININE - URINE 58.8 mg/dL (30-125); PROTEIN - URINE 11.4 mg/dL (0.0-11.9)
[2019-06-13 18:15] VITALS: BP 148/76
[2019-06-13 19:00] VITALS: BP 141/60
[2019-06-13 23:08] VITALS: BP 172/73
--- NOTE | 2019-06-14 | NUR ---
I have reviewed this patient and I concur with the Shift Assessment completed by the Licensed Practical Nurse today this shift.
--- NOTE | 2019-06-14 02:57 | NUR ---
RESTING WITH EYES CLOSED, RESPERTIONS EVEN, NO S/S DISTRESS NOTED.
[2019-06-14 04:00] VITALS: BP 118/57
[2019-06-14 05:40] LABS: BASOPHILS 0.1 % (0-2); EOSINOPHILS 2.2 % (0-7); HEMATOCRIT 40.2 % (42.0-54.0); HEMOGLOBIN 13.4 g/dL (13.5-17.5); IMMATURE GRANULOCYTES 0.6 % (0-5); LYMPHOCYTES 4.1 % (15-50); MCH 29.8 pg (26.0-34.0); MCHC 33.3 g/dL (31.0-37.0); MCV 89.3 fL (80.0-100.0); MEAN PLATELET VOLUME 9.5 fL (7.4-10.4); MONOCYTES 5.9 % (2-11); NEUTROPHILS 87.1 % (40-80); PLATELET COUNT 177 10x3/uL (130-400); RDW 15.5 % (11.5-14.5)
[2019-06-14 06:09] LABS: ANION GAP 20.6 mmol/L (8-16); BILIRUBIN - TOTAL 0.39 mg/dL (0.2-1.3); CARBON DIOXIDE 19.5 mmol/L (21.0-32.0); POTASSIUM - SERUM 5.1 mmol/L (3.5-5.1); PROTEIN - SERUM 7.2 g/dL (6.4-8.2)
[2019-06-14 06:19] LABS: ALBUMIN 2.3 g/dL (3.4-5.0)
[2019-06-14 06:23] LABS: CREATININE - SERUM 4.4 mg/dL (0.6-1.3)
[2019-06-14 09:01] VITALS: BP 129/54
--- NOTE | 2019-06-14 10:05 | NUR ---
ALERT AND ORIENTED. HAS A OLD TRAC SO IS UNABLE TO TALK CRYSTAL LOUD. HE IS ON ROOM AIR AND NO TELEMERTY. GEORGE CATH TO BEDSIDE DRAINAGE. LORIN TO BOTH LEGS. SR UP WITH CALL LIGHT IN REACH
--- NOTE | 2019-06-14 10:11 | NUR ---
IV FLUID OF NS AT 100 STARTED PER ORDER
--- NOTE | 2019-06-14 10:15 | NUR ---
Rehab Prescreening Consult recieved and the chart has been reviewed. He is [facility] managed Medicare, and will require a preauth for rehab. Once his PT and OT evals are completed all information will be submitted to [facility] for their review. Nevaeh Argueta RN Clinical Liaison, Rehab
[2019-06-14 13:03] VITALS: BMI 27.8
[2019-06-14 13:11] LABS: % SATURATION 36 % (15-55); IRON 54 ug/dl (35-150); TOTAL IRON BIND CAPACITY 150 ug/dl (260-445); UNSAT IRON BIND CAPACITY 96 ug/dl (150-375)
[2019-06-14 13:19] VITALS: BP 121/62
[2019-06-14 13:29] LABS: ANION GAP 22.2 mmol/L (8-16); CALCIUM 8.9 mg/dL (8.5-10.1); POTASSIUM - SERUM 5.2 mmol/L (3.5-5.1)
--- NOTE | 2019-06-14 15:27 | NUR ---
REFUSED SCD'S. PER CHETAN/WASTE WATER OR WATER PLANT OPERATOR WILL WEAR TOMORROW
[2019-06-14 17:58] VITALS: BP 150/63
--- NOTE | 2019-06-14 19:43 | NUR ---
RECEIVED REPORT, WILL ASSUME CARE OF PT, HELPED REPOSTION PT UP IN BED, BED IS LOW, SRX2, CALL LIGHT IN REACH, WILL CONTINUE PLAN OF CARE
[2019-06-14 20:10] VITALS: BP 102/39
[2019-06-15 00:05] VITALS: BP 134/57
--- NOTE | 2019-06-15 01:58 | NUR ---
I have reviewed this patient and I concur with the Shift Assessment completed by the Licensed Practical Nurse today this shift.
--- NOTE | 2019-06-15 03:44 | NUR ---
SLEEPING, BED IS LOW, SRX2, CALL LIGHT IN REACH, WILL CONTINUE PLAN OF CARE
[2019-06-15 04:10] VITALS: BP 127/54
[2019-06-15 05:10] LABS: BASOPHILS 0.1 % (0-2); EOSINOPHILS 3.8 % (0-7); HEMOGLOBIN 11.7 g/dL (13.5-17.5); IMMATURE GRANULOCYTES 0.9 % (0-5); LYMPHOCYTES 5.1 % (15-50); MCH 29.5 pg (26.0-34.0); MCHC 33.4 g/dL (31.0-37.0); MCV 88.2 fL (80.0-100.0); MEAN PLATELET VOLUME 9.8 fL (7.4-10.4); MONOCYTES 7.5 % (2-11); NEUTROPHILS 82.6 % (40-80); PLATELET COUNT 169 10x3/uL (130-400); RBC 3.97 10x6/uL (4.20-6.10); WBC 13.8 10x3/uL (4.8-10.8)
[2019-06-15 05:22] LABS: CALCIUM 8.3 mg/dL (8.5-10.1); CARBON DIOXIDE 22.3 mmol/L (21.0-32.0)
[2019-06-15 05:29] LABS: CREATININE - SERUM 1.3 mg/dL (0.6-1.3); POTASSIUM - SERUM 4.3 mmol/L (3.5-5.1)
[2019-06-15 08:13] VITALS: BP 131/57
--- NOTE | 2019-06-15 08:24 | NUR ---
ASSESSMENT DONE. DENIES NEEDS
[2019-06-15 12:49] VITALS: BP 133/48
[2019-06-15 14:08] VITALS: Ht 172.7 cm; Wt 83.3 kg
--- NOTE | 2019-06-15 15:51 | NUR ---
I have reviewed this patient and I concur with the Shift Assessment completed by the Licensed Practical Nurse today this shift.
[2019-06-15 16:42] VITALS: BP 126/56
--- NOTE | 2019-06-15 19:24 | NUR ---
RECEIVED REPORT, WILL ASSUME CARE OF PT, SLEEPING, BED IS LOW, SRX2, CALL LIGHT IN REACH, WILL CONTINUE PLAN OF CARE
[2019-06-15 20:05] VITALS: BP 126/58
[2019-06-16] VITALS: BP 140/61
[2019-06-16 04:00] VITALS: BP 135/52
--- NOTE | 2019-06-16 05:34 | NUR ---
I have reviewed this patient and I concur with the Shift Assessment completed by the Licensed Practical Nurse today this shift.
[2019-06-16 05:50] LABS: BASOPHILS 0.2 % (0-2); EOSINOPHILS 4.3 % (0-7); HEMATOCRIT 34.5 % (42.0-54.0); HEMOGLOBIN 11.4 g/dL (13.5-17.5); IMMATURE GRANULOCYTES 0.9 % (0-5); LYMPHOCYTES 7.8 % (15-50); MCH 29.2 pg (26.0-34.0); MCV 88.2 fL (80.0-100.0); MONOCYTES 6.5 % (2-11); NEUTROPHILS 80.3 % (40-80); PLATELET COUNT 157 10x3/uL (130-400); RBC 3.91 10x6/uL (4.20-6.10); RDW 14.7 % (11.5-14.5)
[2019-06-16 06:07] LABS: CALC OSMOLALITY 285 mosm/kg (275-300); CALCIUM 8.2 mg/dL (8.5-10.1); CARBON DIOXIDE 24.4 mmol/L (21.0-32.0); CHLORIDE - SERUM 106 mmol/L (98-107); GLUCOSE 112 mg/dL (74-106); POTASSIUM - SERUM 3.9 mmol/L (3.5-5.1); SODIUM 140 mmol/L (136-145); eGFR NON AFRICAN AMERICAN 78 mL/min (90-120)
[2019-06-16 06:08] LABS: UREA NITROGEN 28 mg/dL (7-18)
--- NOTE | 2019-06-16 07:58 | NUR ---
ASSESSMENT DONE. DENIES NEEDS
[2019-06-16 08:37] VITALS: BP 143/56
--- NOTE | 2019-06-16 09:42 | NUR ---
I have reviewed this patient and I concur with the Shift Assessment completed by the Licensed Practical Nurse today this shift.
[2019-06-16 12:41] VITALS: BP 141/57
[2019-06-16 15:13] VITALS: BP 106/64
--- NOTE | 2019-06-16 17:21 | NUR ---
WITHOUT CHANGES OR DISTRESS NOTED AT THIS TIME. DENIES NEEDS
--- NOTE | 2019-06-16 19:06 | NUR ---
RECEIVED REPORT, WILL ASSUME CARE OF PT, SLEEPING, NO DISTRESS NOTICE AT THIS TIME, BED IS LOW, SRX2, CALL LIGHT IN REACH, WILL CONTINUE PLAN OF CARE
[2019-06-16 20:00] VITALS: BP 183/60
[2019-06-17] VITALS: BP 134/63
[2019-06-17 04:00] VITALS: BP 149/69
--- NOTE | 2019-06-17 05:57 | NUR ---
I have reviewed this patient and I concur with the Shift Assessment completed by the Licensed Practical Nurse today this shift.
[2019-06-17 06:49] LABS: BASOPHILS 0.2 % (0-2); EOSINOPHILS 4.6 % (0-7); HEMATOCRIT 34.8 % (42.0-54.0); HEMOGLOBIN 11.7 g/dL (13.5-17.5); IMMATURE GRANULOCYTES 0.7 % (0-5); MCH 29.5 pg (26.0-34.0); MCHC 33.6 g/dL (31.0-37.0); MCV 87.7 fL (80.0-100.0); MEAN PLATELET VOLUME 10.3 fL (7.4-10.4); MONOCYTES 6.1 % (2-11); NEUTROPHILS 81.4 % (40-80); PLATELET COUNT 170 10x3/uL (130-400); RBC 3.97 10x6/uL (4.20-6.10); RDW 14.1 % (11.5-14.5)
[2019-06-17 07:06] LABS: CALC OSMOLALITY 275 mosm/kg (275-300); CARBON DIOXIDE 26.1 mmol/L (21.0-32.0); CHLORIDE - SERUM 103 mmol/L (98-107); CREATININE - SERUM 0.9 mg/dL (0.6-1.3); GLUCOSE 105 mg/dL (74-106); POTASSIUM - SERUM 3.9 mmol/L (3.5-5.1); SODIUM 137 mmol/L (136-145); eGFR NON AFRICAN AMERICAN 88 mL/min (90-120)
[2019-06-17 07:07] LABS: UREA NITROGEN 17 mg/dL (7-18)
--- NOTE | 2019-06-17 07:30 | NUR ---
ALERT AND ORIENTED/. PT HAS A TRACK THAT IS CAPPED. LEFT WRIST SL. GEORGE PATENT TO GRAVITY BAG. LEGS ARE WEEPING, SKIN BREAKING DOWN IN CRACK BETWEEN BUTTOCKS. DENIES ANY NEEDS. SR UP WITH CALL LIGHT IN REACH
[2019-06-17 08:02] VITALS: BP 114/54
[2019-06-17 13:09] VITALS: BP 108/53
--- NOTE | 2019-06-17 13:57 | NUR ---
I have reviewed this patient and I concur with the Shift Assessment completed by the Licensed Practical Nurse today this shift.
--- NOTE | 2019-06-17 14:53 | NUR ---
Nutrition Follow-up: Ate 75% of meal this AM. Reports drinking Boost with meals. Awaiting placement. Diet: Cardiac, Boost with meals Wt: 184# Last BM: 06/14 Labs reviewed Meds reviewed Continue current diet/supplement as tolerated. RD following.
[2019-06-17 16:00] VITALS: BP 118/55
[2019-06-17 21:08] VITALS: BP 132/61
[2019-06-18 00:20] VITALS: BP 130/61
--- NOTE | 2019-06-18 03:59 | NUR ---
I have reviewed this patient and I concur with the Shift Assessment completed by the Licensed Practical Nurse today this shift.
--- NOTE | 2019-06-18 04:03 | NUR ---
RESTING WITH EYES CLOSED, RESPERATIONS EVEN, NO S/S DISTRESS NOTED.
[2019-06-18 04:13] VITALS: BP 134/64
[2019-06-18 05:20] LABS: BASOPHILS 0.1 % (0-2); EOSINOPHILS 3.1 % (0-7); HEMATOCRIT 36.5 % (42.0-54.0); HEMOGLOBIN 12.3 g/dL (13.5-17.5); IMMATURE GRANULOCYTES 0.7 % (0-5); LYMPHOCYTES 5.8 % (15-50); MCH 29.6 pg (26.0-34.0); MCHC 33.7 g/dL (31.0-37.0); MCV 87.7 fL (80.0-100.0); MEAN PLATELET VOLUME 10.2 fL (7.4-10.4); MONOCYTES 6.3 % (2-11); PLATELET COUNT 174 10x3/uL (130-400); RBC 4.16 10x6/uL (4.20-6.10); RDW 14.1 % (11.5-14.5); WBC 13.4 10x3/uL (4.8-10.8)
--- NOTE | 2019-06-18 05:30 | NUR ---
CREMATOR AT BED SIDE, HIBLCLENSE BATH AND LINEN CHANGE COMPLETE.
[2019-06-18 05:33] LABS: CALC OSMOLALITY 272 mosm/kg (275-300); CALCIUM 8.2 mg/dL (8.5-10.1); CARBON DIOXIDE 25.6 mmol/L (21.0-32.0); CHLORIDE - SERUM 100 mmol/L (98-107); GLUCOSE 126 mg/dL (74-106); POTASSIUM - SERUM 4.1 mmol/L (3.5-5.1); SODIUM 135 mmol/L (136-145); UREA NITROGEN 16 mg/dL (7-18); eGFR NON AFRICAN AMERICAN 78 mL/min (90-120)
--- NOTE | 2019-06-18 07:46 | NUR ---
AWAKE AND ALERT. PT HAS A TRAC THAT IS CAPPED. UNABLE TO TALK. RIGHT WRIST SL. ON ROOM AIR. LEGS WITH SORES AND BUTT WITHBREAK DOWN. PT CAME TO US LIKE THIS. SISTER STATES THAT HE WONT WALK, TURN OR KEEP LEGS ELEVATED AT HOME. I ENCUOURAGED PT TO TURN, ELEVATE HIS LEGS AND TO GET OUT OF BED . NPO FOR TURP AND BIOSPY. SR UP WITH CALL LIGHT IN REACH
[2019-06-18 09:12] VITALS: BP 125/58
--- NOTE | 2019-06-18 11:36 | NUR ---
I have reviewed this patient and I concur with the Shift Assessment completed by the Licensed Practical Nurse today this shift.
--- NOTE | 2019-06-18 12:27 | NUR ---
Rehab Note- Received call from Kaylie with [facility] stating that their manager medical affairs had reviewed the patient's medical receord & that it lack the support for inpatient acute rehab. A peer to peer can be set up by calling [phone] by Thursday 06/21 @ 1100AM. Spoke with SEGUNDO Johnson. Thank you for this referral! Swathi Cormier RN Clincial Liaison, [facility] Rehab
[2019-06-18 12:46] VITALS: BP 101/54
--- NOTE | 2019-06-18 13:39 | NUR ---
PT DISCHARGED. IV DCD WITH TIP INTACT. TO PRIVATE CAR PER WHEELCHAIR.
--- NOTE | 2019-06-18 13:43 | NUR ---
OT NOTE: PT REPORTED NOT FEELING WELL TODAY. PROVIDED PT WITH WASH CLOTH AND HE WAS ABLE TO WASH FACE, HANDS, AND UPPER BODY. SUPINE TO SIT WITH MIN/MOD ASSIST. STATIC SITTING WITH GOOD BALANCE. AROM EXS WITH FREQ REST BREAKS. PT FATIGUED EASILY TODAY. SIT TO STAND WITH MIN/MOD ASSIST. ONLY ABLE TO TAKE APPROX 7 STEPS AND REPORTED THAT HE FELT DIZZY. TRANSFERRED TO CHAIR WITH MIN ASSIST. ELADIO CHOUDHARY, OTR/L
--- NOTE | 2019-06-18 16:19 | NUR ---
PATIENT BACK FROM SURGERY. ALERT AND ORIENTED. V/S STABLE B/P 122/60 RESP 18, HR [address] AT 98, URINE SLIGHTLY RED. DENIES ANY NEES. SR UP WITH CALL LIGHT IN REACH. WILL MONITOR
--- NOTE | 2019-06-18 16:46 | NUR ---
LYING QUIETLY WITH EYES CLOSED. NO DISTRESS NOTED, TELEMERTY SHOWS SR. WILL MONITOR
--- NOTE | 2019-06-18 16:51 | NUR ---
PT LYING QUIETLY WITH EYES CLOSED. NO DISTRESS NOTED.
[2019-06-18 17:16] VITALS: BP 127/60
--- NOTE | 2019-06-18 19:25 | NUR ---
PATIENT IS WATCHING TV. DENIES ANY PAIN OR CONCERNS AT THIS TIME. BREATHING IS EVEN AND UNLABORED. NO VISIBLE SIGNS OF DISTRESS. GEORGE IN PLACE AND PATENT.
[2019-06-18 20:00] VITALS: BP 116/56
--- NOTE | 2019-06-18 22:28 | NUR ---
PATIENT IS LAYING IN BED AND WATCHING TV. BREATHING IS EVEN AND UNLABORED. PATIENT DENIES ANY PAIN OR CONCERNS AT THIS TIME. BED IS IN THE LOWEST POSITION AND CALL LIGHT WITHIN REACH. WILL CONTINUE TO MONITOR.
[2019-06-19] VITALS: BP 125/60
--- NOTE | 2019-06-19 02:27 | NUR ---
PATIENT IS RESTING IN BED WATCHING TV. DENIES ANY PAIN OR CONCERNS AT THIS TIME. BREATHING IS EVEN AND UNLABORED. BED IS IN THE LOWEST POSITON AND CALL LIGHT IS IN REACH. WILL CONTINUE TO MONITOR.
[2019-06-19 04:00] VITALS: BP 124/55
[2019-06-19 06:30] LABS: CALC OSMOLALITY 270 mosm/kg (275-300); CALCIUM 8.3 mg/dL (8.5-10.1); CARBON DIOXIDE 25.7 mmol/L (21.0-32.0); CHLORIDE - SERUM 98 mmol/L (98-107); CREATININE - SERUM 0.9 mg/dL (0.6-1.3); GLUCOSE 111 mg/dL (74-106); POTASSIUM - SERUM 4.2 mmol/L (3.5-5.1); SODIUM 134 mmol/L (136-145); UREA NITROGEN 17 mg/dL (7-18); eGFR NON AFRICAN AMERICAN 88 mL/min (90-120)
[2019-06-19 06:51] LABS: HEMATOCRIT 35.4 % (42.0-54.0); MCHC 33.9 g/dL (31.0-37.0); MCV 88.5 fL (80.0-100.0); MEAN PLATELET VOLUME 10.6 fL (7.4-10.4); PLATELET COUNT 204 10x3/uL (130-400); RDW 14.1 % (11.5-14.5); WBC 14.1 10x3/uL (4.8-10.8)
[2019-06-19 07:39] LABS: LYMPHOCYTES 4 % (15-50); MONOCYTES 8 % (2-11); NEUTROPHILS 88 % (40-80)
[2019-06-19 07:40] LABS: PLATELET ESTIMATE NORMAL
[2019-06-19 08:00] VITALS: BP 147/64
--- NOTE | 2019-06-19 10:43 | NUR ---
UP AMBULATING HALLWAY WITH PT ASSIST. WILL CONT. PLAN OF CARE.
--- NOTE | 2019-06-19 10:47 | OP ---
PATIENT NAME: ANNEL NUNEZ MEDICAL RECORD: [id number] :47 LOCATION:D. D.2125 ADMISSION DATE:06/13/19 SURGEON: BORIS MENDEZ MD DATE OF OPERATION: 06/18/2019 SURGEON: Boris Mendez MD ANESTHESIA: TIVA by Christian Stevens CRNA DIAGNOSES: Acute renal failure due to urinary retention, bladder outlet obstruction, elevated PSA of 17.85. PROCEDURES: Cystoscopy, transrectal ultrasound, and prostate biopsy. FINDINGS: On cystoscopy, long obstructive bilateral lateral lobes of the prostate. Tall bladder neck. No bladder tumors are seen. There is a trabeculated bladder with single ureteral orifices bilaterally. On transrectal ultrasound, the prostate sizing 57 grams with multiple hypoechoic regions within. SPECIMENS: Prostate biopsy cores. BLOOD LOSS: Minimal. CLINICAL HISTORY: This is a 73-year-old male, who is presenting to the Emergency Room with acute renal failure and generalized edema. On ultrasound, he was found to have bilateral hydroureteronephrosis and a very distended bladder. His prostate was also found to be enlarged. A Fernandez catheter was placed and his creatinine went from 7, which was his presenting creatinine, down to 0.9. His PSA was obtained and it was elevated at 17.85. He had a urine culture, which showed no growth. He has had a previous laryngectomy and he is not able to give any sort of history. He comes today to have a prostate biopsy performed. He was given Ancef rn lactation to the OR. DESCRIPTION OF PROCEDURE: The patient was given IV sedation. He was then placed into lithotomy position. His indwelling Fernandez catheter was removed. He was then prepped and draped. Cystoscopy was performed using a 21-Syriac cystoscope with 30-degree lens. There are no penile urethral strictures. The prostatic urethra was quite obstructed with long lateral lobes and then tight bladder neck. Going into the bladder, there are single ureteral orifices bilaterally. The bladder was trabeculated. No bladder tumors were seen. The scope was then removed. The transrectal ultrasound probe was introduced. Prostatic size and measurements were obtained and we obtained a size estimate of 57 grams. Internal hypoechoic areas were seen within the prostate. Sextant biopsies were obtained with at least 3 cores from each sextant. Once all the specimens were obtained, the procedure was terminated. The patient was then brought back to the recovery room and from there he will come back to his hospital [facility]. TRANSINT:[id number] Voice Confirmation ID: [id number] DOCUMENT ID: [id number] OPERATIVE REPORT [id number] ANNEL NUNEZ ROBERT S MD at 1047 CC: [id number] DICTATION DATE: 06/18/19 1538 ELECTRIC MOTOR FITTER: 06/19/19 0034 ADM IN [place] [id number] [place] [address]
--- NOTE | 2019-06-19 11:41 | NUR ---
OT NOTE: PERFORMED AM ADLS. PRACTICED BED MOB WITH MIN ASSIST AND CUES FOR POSITIONING TO IMPROVE INDEP WITH SUPINE TO SIT. AMB IN ROOM AND INTO HALLWAY WITH IV, GAIT BELT, WALKER, AND MIN ASSIST. TRANSFERRED TO CHAIR WITH MIN ASSIST. PROVIDED BASIN AND CLEANING ITEMS. PT ABLE TO WASH FACE, HANDS, UPPER BODY, AND CHEST. ABLE TO BATHE UPPER LEGS BUT MAX ASSIST WITH LOWER LEGS AND FEET. RECOMMEND SECTION HAND FOR TOENAIL CARE. SIMPLE GROOMING WITH SET UP. ELADIO CHOUDHARY, OTR/L
--- NOTE | 2019-06-19 12:38 | MORECARE ---
CASE MANAGEMENT DISCHARGE SUMMARY PATIENT: ANNEL NUNEZ UNIT: [id number] ADM DATE: 06/13/19 AGE: 73 : 46 SEX: M ROOM/BED: D.2125 AUTHOR: JAC JENKINS PHYSICIAN: REFERRING PHYSICIAN: DANNI TAY MD DATE OF SERVICE: 06/19/19 Discharge Plan Patient Name: ANNEL NUNEZ Facility: [facility]:[place] : 1945 Planned Disposition: Inpatient Rehab Anticipated Discharge Date: 06/19/19 Discharge Date: Expected LOS: 6 Initial Reviewer: [email or web address] Initial Review Date: 06/19/2019 Generated: 06/19/19 1:37 pm Patient Name: ANNEL NUNEZ Page 65446 at 1238 All edits/amendments must be made on the electronic document DICTATION DATE: 06/19/19 1237 ACTIVE DIRECTORY ARCHITECT: JEAN 06/19/19 1237 RPT#: [id number] DC DATE: STATUS: ADM IN [facility] [address] [place] [address] END OF REPORT
--- NOTE | 2019-06-19 12:56 | NUR ---
DUODERM DRSG APPLIED TO STAGE 2 TO EACH SIDE BUTT, NOTED.
[2019-06-19 13:59] VITALS: BP 139/60
--- NOTE | 2019-06-19 15:59 | MORECARE ---
CASE MANAGEMENT DISCHARGE SUMMARY PATIENT: ANNEL NUNEZ UNIT: [id number] ADM DATE: 06/13/19 AGE: 73 : 46 SEX: M ROOM/BED: D.2125 AUTHOR: JAC JENKINS PHYSICIAN: REFERRING PHYSICIAN: DANNI TAY MD DATE OF SERVICE: 06/19/19 Discharge Plan Patient Name: ANNEL NUNEZ [facility] [facility] 1945 Planned Disposition: Senior Living Facility Anticipated Discharge Date: 06/20/19 Discharge Date: Expected LOS: 7 Initial Reviewer: [email or web address] Initial Review Date: 06/19/2019 Generated: 06/19/19 4:58 pm DCPIA - Discharge Planning Initial Assessment Updated by [email or web address]: Jase Ulloa on 06/19/19 3:50 pm * Is the patient Alert and Oriented? Yes * How many steps to enter\exit or inside your home? NONE * PCP DR. LACKEY IN [place] * Pharmacy [facility] IN [place] * Preadmission Environment Home with Family * ADLs Independent * Equipment Cane Walker * Other Equipment NO MEDICAL EQUIPMENT PROVIDER PREFERENCE * List name and contact numbers for known caregivers / representatives who currently or will assist patient after discharge: REDD COLIN, SISTER, * Verbal permission to speak to the caregivers and representatives has been obtained from the patient. Yes * Community resources currently utilized None * Please name any agencies selected above. NONE * Additional services required to return to the preadmission environment? No * Can the patient safely return to the preadmission environment? Yes * Has this patient been hospitalized within the prior 30 days at any hospital? No Last DP export: 06/19/19 11:38 a Patient Name: ANNEL NUNEZ Page 05707 at 1559 All edits/amendments must be made on the electronic document DICTATION DATE: 06/19/191557 FLAME BRAZING MACHINE OPERATOR: JEAN 06/19/191557 RPT#: [id number] DC DATE: STATUS: ADM IN [place] [address] [place] [address] END OF REPORT
--- NOTE | 2019-06-19 16:07 | MORECARE ---
CASE MANAGEMENT DISCHARGE SUMMARY PATIENT: ANNEL NUNEZ UNIT: [id number] ADM DATE: 06/13/19 AGE: 73 : 46 SEX: M ROOM/BED: D.6188 AUTHOR: ALICE,DOC PHYSICIAN: REFERRING PHYSICIAN: DANNI TAY MD DATE OF SERVICE: 06/19/19 Discharge Plan Patient Name: ANNEL NUNEZ Facility: [facility]:[place] : 1945 Planned Disposition: Usp Facility Anticipated Discharge Date: 06/20/19 Discharge Date: Expected LOS: 7 Initial Reviewer: [email or web address] Initial Review Date: 06/19/2019 Generated: 06/19/19 5:06 pm Comments DCP- Discharge Planning Updated by [email or web address]: Jase Batista on 06/19/19 3:[address] Patient Name: ANNEL NUNEZ Encounter No: [id number] : 1945 Primary Insurance: [employer] CHOICE PPO MCR ADVANT Anticipated DC Date: 06-20-2019 Planned Disposition: Usp Facility External Planned Provider: [facility], MEDICARE REHAB BED DCP follow-up note: CM RECEIVED CALL FROM [facility] OF INPATIENT REHAB WHO INFORMED CM THAT INSURANCE HAS DECLINED PT AND THAT A PEER TO PEER COULD BE DONE. CM SPOKE TO DR. HOOKER WHO AGREED TO DO PEER TO PEER. CM CALLED INSURANCE COMPANY AND ARRANGED FOR INSURANCE TO CALL DR. HOOKER TODAY. CM MET WITH PT IN ROOM TO DISCUSS DISCHARGE PLANNING AND NEEDS. PT WAS UNABLE TO SPEAK AND CM WAS ABLE TO READ PT'S LIPS. PT REPORTS LIVING AT HOME INDEPENDENTLY WITH HIS ADULT SISTER. PT STATES REHAB WHEN ASKED ABOUT DISCHARGE PLAN AND DIRECTED CM TO CALL HIS SISTER. CM CALLED PT'S SISTER, REDD COLIN, . REDD REPORTS PT LIVES WITH THEM AND HE NEEDS REHAB AND IF AT NOT AT INPATIENT REHAB, THEN AT [facility]. CHOICE LETTER COMPLETED. REDD REPORTS THAT IF PT GETS TO THE POINT HE CAN CARE FOR HIMSELF, THE GOAL IS TO GET HIM INTO A GOVERNMENT SUBSUDIZED APARTMENT. IF NOT, PT MAY NEED HALF-WAY CARE. CM LATER INFORMED THAT PEER TO PEER HAD BEEN DONE AND INSURANCE DECLINED INPATIENT REHAB SERVICES. CM CALLED AYDEN AT [facility], , NOTIFIED OF REFERRAL. CM FAXED REFERRAL FOR REHAB TO [facility] AT [phone]. CM WAITING ADMISSION DETERMINATION FROM [facility] IN [place] INSURANCE DETERMINATION FOR SKILLED REHAB SERVICES. JASE BATISTA, CASE MANAGEMENT DCPIA - Discharge Planning Initial Assessment Updated by [email or web address]: Jase Batista on 06/19/19 3:50 pm * Is the patient Alert and Oriented? Yes * How many steps to enter\exit or inside your home? NONE * PCP DR. LACKEY IN [place] * Pharmacy [facility] IN [place] * Preadmission Environment Home with Family * ADLs Independent * Equipment Cane Walker * Other Equipment NO MEDICAL EQUIPMENT PROVIDER PREFERENCE * List name and contact numbers for known caregivers / representatives who currently or will assist patient after discharge: REDD COLIN, SISTER, * Verbal permission to speak to the caregivers and representatives has been obtained from the patient. Yes * Community resources currently utilized None * Please name any agencies selected above. NONE * Additional services required to return to the preadmission environment? No * Can the patient safely return to the preadmission environment? Yes * Has this patient been hospitalized within the prior 30 days at any hospital? No External Providers External Provider: [facility] Next Contact Date: 06/19/2019 Service Request Date: Service Type: Resolution: Reviewer: Comments: Last DP export: 06/19/19 2:59 p Patient Name: ANNEL NUNEZ Page 28724 at 1607 All edits/amendments must be made on the electronic document DICTATION DATE: 06/19/19 160 FASHION MODEL: JEAN 06/19/191605 RPT#: [id number] DC DATE: STATUS: ADM IN [facility] [address] [place] [address] END OF REPORT
[2019-06-19 17:19] VITALS: BP 133/58
--- NOTE | 2019-06-19 17:26 | NUR ---
OT NOTE: PT COMPLETED ADL MOB WITH SBA/CGA. PT COMPLETED SIT TO STAND WITH SBA/CGA. PT COMPLETED TOILETING AND HYGIENE TASKS WITH SBA. THANK YOU, XOCHILT CORBETT
--- NOTE | 2019-06-19 18:59 | NUR ---
PATIENT IS RESTING IN BED. REPOSITIONED PATIENT IN BED AND ELEVATED THE HEAD OF THE BED TO 45 DEGREES. BREATHING IS EVEN AND UNLABORED. PATIENT DENIES ANY PAIN OR CONCERNS AT THIS TIME. PATIENTS IV IS PATENT RUNNING NS @ 100. GEORGE IS IN PLACE AND PATENT. BED IN LOWEST POSITION AND CALL LIGHT IN REACH.
[2019-06-19 20:00] VITALS: BP 133/63
--- NOTE | 2019-06-20 00:22 | NUR ---
PATIENT IS RESTING IN BED AND IS WATCHING TV. PATIENT DENIES ANY CONCERNS OR PAIN AT THIS TIME. BED IS IN THE LOWEST POSITION AND CALL LIGHT IN REACH. WILL CONTINUE TO MONITOR.
[2019-06-20 00:35] VITALS: BP 131/70
--- NOTE | 2019-06-20 01:00 | NUR ---
BELT MACHINE OPERATOR GIVING PATIENT BATH.
--- NOTE | 2019-06-20 02:17 | NUR ---
PATIENT RESTING IN BED. NO VISIBLE SIGNS OF DISTRESS. BED IN THE LOWEST POSITION AND CALL LIGHT IN REACH. WILL CONTINUE TO MONITOR.
[2019-06-20 04:00] VITALS: BP 126/63
[2019-06-20 06:07] LABS: BASOPHILS 0.2 % (0-2); EOSINOPHILS 3.4 % (0-7); HEMATOCRIT 34.4 % (42.0-54.0); HEMOGLOBIN 11.5 g/dL (13.5-17.5); IMMATURE GRANULOCYTES 0.4 % (0-5); LYMPHOCYTES 6.2 % (15-50); MCH 29.6 pg (26.0-34.0); MCHC 33.4 g/dL (31.0-37.0); MCV 88.7 fL (80.0-100.0); MEAN PLATELET VOLUME 10.4 fL (7.4-10.4); NEUTROPHILS 82.8 % (40-80); PLATELET COUNT 173 10x3/uL (130-400); RBC 3.88 10x6/uL (4.20-6.10); RDW 14.1 % (11.5-14.5); WBC 12.2 10x3/uL (4.8-10.8)
[2019-06-20 06:34] LABS: CALC OSMOLALITY 272 mosm/kg (275-300); CALCIUM 7.8 mg/dL (8.5-10.1); CARBON DIOXIDE 24.2 mmol/L (21.0-32.0); CHLORIDE - SERUM 103 mmol/L (98-107); CREATININE - SERUM 0.8 mg/dL (0.6-1.3); GLUCOSE 105 mg/dL (74-106); MAGNESIUM - SERUM 1.6 mg/dL (1.8-2.4); SODIUM 136 mmol/L (136-145); UREA NITROGEN 15 mg/dL (7-18); eGFR NON AFRICAN AMERICAN > 90 mL/min (90-120)
--- NOTE | 2019-06-20 07:17 | NUR ---
REPORT RECEIVED. WILL CONTINUE WITH POC. PT CURRENTLY LYING SEMI FOWLERS. PT IS RESTING AT THIS TIME. CALL LIGHT W/I REACH. RR EVENA ND UNLABORED ON RA. NS INFUSING @100ML/HR VIA L.WRIST PIV. GEORGE IN PLACE AND DRAINING URINE. PT DENIES ANY NEEDS AT THIS TIME. NO S/S OF DISTRESS NOTED. WILL CTM.
[2019-06-20 09:22] VITALS: BP 138/64
[2019-06-20 12:02] VITALS: BP 122/60
--- NOTE | 2019-06-20 12:32 | MORECARE ---
CASE MANAGEMENT DISCHARGE SUMMARY PATIENT: ANNEL NUNEZ UNIT: [id number] ADM DATE: 06/13/19 AGE: 73 : 46 SEX: M ROOM/BED: D.6449 AUTHOR: ALICE,DOC PHYSICIAN: REFERRING PHYSICIAN: DANNI TAY MD DATE OF SERVICE: 06/20/19 Discharge Plan Patient Name: ANNEL NUNEZ Facility: [facility]:[place] : 1945 Planned Disposition: Custodial Facility Anticipated Discharge Date: 06/20/19 Discharge Date: Expected LOS: 7 Initial Reviewer: [email or web address] Initial Review Date: 06/19/2019 Generated: 06/20/19 1:32 pm Comments DCP- Discharge Planning Updated by [id number]: Jase Batista on 06/20/19 11:[address] Patient Name: ANNEL NUNEZ Encounter No: [id number] : 1945 Primary Insurance: [employer] CHOICE PPO MCR ADVANT Anticipated DC Date: 06-20-2019 Planned Disposition: Custodial Facility External Planned Provider: [facility] DCP follow-up note: CM RETURNED CALL TO [facility] AT [facility], , [facility] HAS SUBMITTED FOR INSURANCE AUTHORIZATION. CM WAITING ADMISSION DETERMINATION FROM [facility] IN [place] INSURANCE DETERMINATION FOR SKILLED REHAB SERVICES. JASE BATISTA, CASE MANAGEMENT DCP- Discharge Planning Updated by [id number]: Jase Batista on 06/19/19 3:[address] Patient Name: ANNEL NUNEZ Encounter No: [id number] : 1945 Primary Insurance: HU[employer] CHOICE PPO MCR ADVANT Anticipated DC Date: 06-20-2019 Planned Disposition: Custodial Facility External Planned Provider: [facility], MEDICARE REHAB BED DCP follow-up note: CM RECEIVED CALL FROM [facility] OF INPATIENT REHAB WHO INFORMED CM THAT INSURANCE HAS DECLINED PT AND THAT A PEER TO PEER COULD BE DONE. CM SPOKE TO DR. HOOKER WHO AGREED TO DO PEER TO PEER. CM CALLED INSURANCE COMPANY AND ARRANGED FOR INSURANCE TO CALL DR. HOOKER TODAY. CM MET WITH PT IN ROOM TO DISCUSS DISCHARGE PLANNING AND NEEDS. PT WAS UNABLE TO SPEAK AND CM WAS ABLE TO READ PT'S LIPS. PT REPORTS LIVING AT HOME INDEPENDENTLY WITH HIS ADULT SISTER. PT STATES REHAB WHEN ASKED ABOUT DISCHARGE PLAN AND DIRECTED CM TO CALL HIS SISTER. CM CALLED PT'S SISTER, REDD COLIN, . REDD REPORTS PT LIVES WITH THEM AND HE NEEDS REHAB AND IF AT NOT AT INPATIENT REHAB, THEN AT [facility] IN [place]. CHOICE LETTER COMPLETED. REDD REPORTS THAT IF PT GETS TO THE POINT HE CAN CARE FOR HIMSELF, THE GOAL IS TO GET HIM INTO A GOVERNMENT SUBS[facility]ANCISC[facility] CHILDREN'SZED APARTMENT. IF NOT, PT MAY NEED BACK SIZER CARE. CM LATER INFORMED THAT PEER TO PEER HAD BEEN DONE AND INSURANCE DECLINED INPATIENT REHAB SERVICES. CM CALLED AYDEN AT [facility], , NOTIFIED OF REFERRAL. CM FAXED REFERRAL FOR REHAB TO [facility] AT [phone]. CM WAITING ADMISSION DETERMINATION FROM [facility] IN [place] INSURANCE DETERMINATION FOR SKILLED REHAB SERVICES. JASE BATISTA, CASE MANAGEMENT DCPIA - Discharge Planning Initial Assessment Updated by [id number]: Jase Batista on 06/19/19 3:50 pm * Is the patient Alert and Oriented? Yes * How many steps to enter\exit or inside your home? NONE * PCP DR. LACKEY IN [place] * Pharmacy [facility] IN [place] * Preadmission Environment Home with Family * ADLs Independent * Equipment Cane Walker * Other Equipment NO MEDICAL EQUIPMENT PROVIDER PREFERENCE * List name and contact numbers for known caregivers / representatives who currently or will assist patient after discharge: REDD COLIN, SISTER, * Verbal permission to speak to the caregivers and representatives has been obtained from the patient. Yes * Community resources currently utilized None * Please name any agencies selected above. NONE * Additional services required to return to the preadmission environment? No * Can the patient safely return to the preadmission environment? Yes * Has this patient been hospitalized within the prior 30 days at any hospital? No Last DP export: 06/19/19 3:07 p Patient Name: ANNEL NUNEZ Page 37325 at 1232 All edits/amendments must be made on the electronic document DICTATION DATE: 06/20/19 1232 C WEB DEVELOPER: JEAN 06/20/19 1232 RPT#: [id number] DC DATE: STATUS: ADM IN [facility] [address] [place] [address] END OF REPORT
--- NOTE | 2019-06-20 14:15 | NUR ---
Nutrition Follow-up: Pt reports overall good/fair appetite/PO intake. Drinking at least 1 Boost/day. Diet: Regular, Boost with meals PO intake: 50-100% No new wt Last BM: 06/19 Labs reviewed Meds reviewed -May consider resume Cardiac diet. -Encouraged increased Boost intake. -RD following.
--- NOTE | 2019-06-20 14:22 | NUR ---
I have reviewed this patient and I concur with the Shift Assessment completed by the Licensed Practical Nurse today this shift.
[2019-06-20 16:03] VITALS: BP 142/6
--- NOTE | 2019-06-20 17:46 | MORECARE ---
CASE MANAGEMENT DISCHARGE SUMMARY PATIENT: ANNEL NUNEZ UNIT: [id number] ADM DATE: 06/13/19 AGE: 73 : 46 SEX: M ROOM/BED: D.1480 AUTHOR: ALICE,DOC PHYSICIAN: REFERRING PHYSICIAN: DANNI TAY MD DATE OF SERVICE: 06/20/19 Discharge Plan Patient Name: ANNEL NUNEZ Facility: [facility]:[place] : 1945 Planned Disposition: Halfway Facility Anticipated Discharge Date: 06/21/19 Discharge Date: Expected LOS: 8 Initial Reviewer: [email or web address] Initial Review Date: 06/19/2019 Generated: 06/20/19 6:45 pm Comments DCP- Discharge Planning Updated by [email or web address]: Jase Ulloa on 06/20/19 4:[address] Patient Name: ANNEL NUNEZ Encounter No: [id number] : 1945 Primary Insurance: [employer] CHOICE PPO MCR ADVANT Anticipated DC Date: 06-21-2019 Planned Disposition: Halfway Facility External Planned Provider[facility], MEDICARE REHAB BED CM RECEIVED CALL FROM AYDEN AT [facility], , NOTIFIED THEY WILL ACCEPT TOMORROW MORNING, WILL ARRANGE VAN RAILROAD MECHANIC EARLY. CM NOTIFIED PT IN ROOM AND PT'S SISTER, REDD COLIN, VIA PHONE, WHO IS IN AGREEMENT WITH DISCHARGE PLAN. PETAR MATTHEWS NOTIFIED. FOR DISCHARGE, FAX DISCHARGE INFORMATION TO [facility] AT [phone]. NURSE REPORT TO BE CALLED TO [facility] AT [phone]. [facility] TO ARRANGE VAN RAILROAD MECHANIC FIRST THING IN THE MORNING, 06-21-19. Jase Ulloa, CASE MANAGEMENT DCP- Discharge Planning Updated by [id number]: Jase Ulloa on 06/20/19 11:[address] Patient Name: ANNEL NUNEZ Encounter No: [id number] : 1945 Primary Insurance: [employer] CHOICE PPO MCR ADVANT Anticipated DC Date: 06-20-2019 Planned Disposition: Halfway Facility External Planned Provider: [facility] DCP follow-up note: CM RETURNED CALL TO [facility] AT [facility], , [facility] HAS SUBMITTED FOR INSURANCE AUTHORIZATION. CM WAITING ADMISSION DETERMINATION FROM [facility] IN [place] INSURANCE DETERMINATION FOR SKILLED REHAB SERVICES. AHSAN GODOY DCP- Discharge Planning Updated by [id number]: Jase Ulloa on 06/19/19 3:[address] Patient Name: ANNEL NUNEZ Encounter No: [id number] : 1945 Primary Insurance: HU[employer]NA CHOICE PPO MCR ADVANT Anticipated DC Date: 06-20-2019 Planned Disposition: Halfway Facility External Planned Provider: [facility], MEDICARE REHAB BED DCP follow-up note: CM RECEIVED CALL FROM [facility] OF INPATIENT REHAB WHO INFORMED CM THAT INSURANCE HAS DECLINED PT AND THAT A PEER TO PEER COULD BE DONE. CM SPOKE TO DR. HOOKER WHO AGREED TO DO PEER TO PEER. CM CALLED INSURANCE COMPANY AND ARRANGED FOR INSURANCE TO CALL DR. HOOKER TODAY. CM MET WITH PT IN ROOM TO DISCUSS DISCHARGE PLANNING AND NEEDS. PT WAS UNABLE TO SPEAK AND CM WAS ABLE TO READ PT'S LIPS. PT REPORTS LIVING AT HOME INDEPENDENTLY WITH HIS ADULT SISTER. PT STATES REHAB WHEN ASKED ABOUT DISCHARGE PLAN AND DIRECTED CM TO CALL HIS SISTER. CM CALLED PT'S SISTER, REDD COLIN, . REDD REPORTS PT LIVES WITH THEM AND HE NEEDS REHAB AND IF AT NOT AT INPATIENT REHAB, THEN AT [facility] IN [place]. CHOICE LETTER COMPLETED. REDD REPORTS THAT IF PT GETS TO THE POINT HE CAN CARE FOR HIMSELF, THE GOAL IS TO GET HIM INTO A GOVERNMENT SUBSUDIZED APARTMENT. IF NOT, PT MAY NEED MCC CARE. CM LATER INFORMED THAT PEER TO PEER HAD BEEN DONE AND INSURANCE DECLINED INPATIENT REHAB SERVICES. CM CALLED AYDEN AT [facility], , NOTIFIED OF REFERRAL. CM FAXED REFERRAL FOR REHAB TO [facility] AT [phone]. CM WAITING ADMISSION DETERMINATION FROM [facility] IN [place] INSURANCE DETERMINATION FOR SKILLED REHAB SERVICES. AHSAN GODOY DCPIA - Discharge Planning Initial Assessment Updated by [id number]: Jase Ulloa on 06/19/19 3:50 pm * Is the patient Alert and Oriented? Yes * How many steps to enter\exit or inside your home? NONE * PCP DR. LACKEY IN [place] * [facility] [place] * Preadmission Environment Home with Family * ADLs Independent * Equipment Cane Walker * Other Equipment NO MEDICAL EQUIPMENT PROVIDER PREFERENCE * List name and contact numbers for known caregivers / representatives who currently or will assist patient after discharge: REDD COLIN, SISTER, * Verbal permission to speak to the caregivers and representatives has been obtained from the patient. Yes * Community resources currently utilized None * Please name any agencies selected above. NONE * Additional services required to return to the preadmission environment? No * Can the patient safely return to the preadmission environment? Yes * Has this patient been hospitalized within the prior 30 days at any hospital? No Last DP export: 06/20/19 11:32 a Patient Name: ANNEL NUNEZ Page 14438 at 1746 All edits/amendments must be made on the electronic document DICTATION DATE: 06/20/191744 CRYSTAL FLAT GRINDER: JEAN 06/20/191744 RPT#: [id number] DC DATE: STATUS: ADM IN [facility] [address] [place] [address] END OF REPORT
--- NOTE | 2019-06-20 17:56 | MORECARE ---
CASE MANAGEMENT DISCHARGE SUMMARY PATIENT: ANNEL NUNEZ UNIT: [id number] ADM DATE: 06/13/19 AGE: 73 : 47 SEX: M ROOM/BED: D.8349 AUTHOR: ALICE,DOC PHYSICIAN: REFERRING PHYSICIAN: DANNI TAY MD DATE OF SERVICE: 06/20/19 Discharge Plan Patient Name: ANNEL NUNEZ Facility: [facility]:[place] : 1945 Planned Disposition: Group Home Facility Anticipated Discharge Date: 06/21/19 Discharge Date: Expected LOS: 8 Initial Reviewer: [id number] Initial Review Date: 06/19/2019 Generated: 06/20/19 6:55 pm Comments DCP- Discharge Planning Updated by [email or web address]: Jase Ulloa on 06/20/19 4:[address] Patient Name: ANNEL NUNEZ Encounter No: [id number] : 1945 Primary Insurance: HU[employer]NA CHOICE PPO MCR ADVANT Anticipated DC Date: 06-21-2019 Planned Disposition: Group Home Facility External Planned Provider: [facility], MEDICARE REHAB BED CM RECEIVED CALL FROM AYDEN AT [facility], , NOTIFIED THEY WILL ACCEPT TOMORROW MORNING, WILL ARRANGE VAN ESTIMATOR LUMBER EARLY. CM NOTIFIED PT IN ROOM AND PT'S SISTER, REDD COLIN, VIA PHONE, WHO IS IN AGREEMENT WITH DISCHARGE PLAN. PETAR MATTHEWS NOTIFIED. IMPORTANT MESSAGE FROM MEDICARE PROVIDED AND EXPLAINED TO PT. FOR DISCHARGE, FAX DISCHARGE INFORMATION TO [facility] AT [phone]. NURSE REPORT TO BE CALLED TO [facility] AT [phone]. [facility] TO ARRANGE VAN ESTIMATOR LUMBER FIRST THING IN THE MORNING, 06-21-19. Jase Ulloa, CASE MANAGEMENT DCP- Discharge Planning Updated by [id number]: Jase Ulloa on 06/20/19 11:[address] Patient Name: ANNEL NUNEZ Encounter No: [id number] : 1945 Primary Insurance: HUMANA CHOICE PPO MCR ADVANT Anticipated DC Date: 06-20-2019 Planned Disposition: Group Home Facility External Planned Provider: [facility] DCP follow-up note: CM RETURNED CALL TO COSME AT [facility], , [facility] HAS SUBMITTED FOR INSURANCE AUTHORIZATION. CM WAITING ADMISSION DETERMINATION FROM [facility] IN [place] INS[place]ANCE DETERMIN[place] FOR SKILLED REHAB SERVICES. AHSAN GODOY DCP- Discharge Planning Updated by [id number]: Jase Ulloa on 06/19/19 3:[address] Patient Name: ANNEL NUNEZ Encounter No: [id number] : 1945 Primary Insurance: HUMANA CHOICE PPO MCR ADVANT Anticipated DC Date: 06-20-2019 Planned Disposition: Group Home Facility External Planned Provider: [facility], MEDICARE REHAB BED DCP follow-up note: CM RECEIVED CALL FROM BERNABE OF INPATIENT REHAB WHO INFORMED CM THAT INSURANCE HAS DECLINED PT AND THAT A PEER TO PEER COULD BE DONE. CM SPOKE TO DR. HOOKER WHO AGREED TO DO PEER TO PEER. CM CALLED INSURANCE COMPANY AND ARRANGED FOR INSURANCE TO CALL DR. HOOKER TODAY. CM MET WITH PT IN ROOM TO DISCUSS DISCHARGE PLANNING AND NEEDS. PT WAS UNABLE TO SPEAK AND CM WAS ABLE TO READ PT'S LIPS. PT REPORTS LIVING AT HOME INDEPENDENTLY WITH HIS ADULT SISTER. PT STATES REHAB WHEN ASKED ABOUT DISCHARGE PLAN AND DIRECTED CM TO CALL HIS SISTER. CM CALLED PT'S SISTER, REDD COLIN, . REDD REPORTS PT LIVES WITH THEM AND HE NEEDS REHAB AND IF AT NOT AT INPATIENT REHAB, THEN AT [facility] IN [place]. CHOICE LETTER COMPLETED. REDD REPORTS THAT IF PT GETS TO THE POINT HE CAN CARE FOR HIMSELF, THE GOAL IS TO GET HIM INTO A GOVERNMENT SUBSUDIZED APARTMENT. IF NOT, PT MAY NEED LACE MACHINE OPERATOR CARE. CM LATER INFORMED THAT PEER TO PEER HAD BEEN DONE AND INSURANCE DECLINED INPATIENT REHAB SERVICES. CM CALLED AYDEN AT [facility], , NOTIFIED OF REFERRAL. CM FAXED REFERRAL FOR REHAB TO [facility] AT [phone]. CM WAITING ADMISSION DETERMINATION FROM [facility] IN [place] INSURANCE DETERMINATION FOR SKILLED REHAB SERVICES. AHSAN GODOY DCPIA - Discharge Planning Initial Assessment Updated by [id number]: Jase Ulloa on 06/19/19 3:50 pm * Is the patient Alert and Oriented? Yes * How many steps to enter\exit or inside your home? NONE * PCP DR. LACKEY IN [place] * Pharmacy [facility] IN [place] * Preadmission Environment Home with Family * ADLs Independent * Equipment Cane Walker * Other Equipment NO MEDICAL EQUIPMENT PROVIDER PREFERENCE * List name and contact numbers for known caregivers / representatives who currently or will assist patient after discharge: REDD COLIN, SISTER, * Verbal permission to speak to the caregivers and representatives has been obtained from the patient. Yes * Community resources currently utilized None * Please name any agencies selected above. NONE * Additional services required to return to the preadmission environment? No * Can the patient safely return to the preadmission environment? Yes * Has this patient been hospitalized within the prior 30 days at any hospital? No Coverage Notice Reviewer: [id number] Luis A Ulloa Notice Issued Date-Time: 06/20/2019 17:45 Notice Type: IM Discharge Notice Notice Delivered To: Patient Relationship to Patient: Clerical Order Filler Name: Delivery Method: HAND - Hand Delivered Samanta Days: Prior Verbal Notification: Recipient Understood Notice: Yes Recipient Signature: Yes Med Rec Note Co-signed by Attending: Coverage Notice Comment: Last DP export: 06/20/19 4:46 p Patient Name: ANNEL NUNEZ Page [id number] at 1756 All edits/amendments must be made on the electronic document DICTATION DATE: 06/20/191754 VERIFICATION LEAD: JEAN 06/20/191754 RPT#: [id number] DC DATE: STATUS: ADM IN [facility] [address] [place] [address] END OF REPORT
[2019-06-20] MEDS ORDERED: PROSCAR PO (18:18)
[2019-06-20] MEDS ORDERED: PEPCID PO (18:19)
--- NOTE | 2019-06-20 19:21 | NUR ---
PATIENT IS AAO. RESTING WATCHING TV. IV LFA IS PATENT, NO REDNESS OR SWELLING NOTED. FOLLEY IS IN PLACE AND PATENT, EMPTIED 300ML. PATIENT DENIES ANY PAIN OR CONCERNS AT THIS TIME.BED IS IN THE LOWEST POSTION AND CALL LIGHT IN REACH. WILL CONTINUE TO MONITOR.
[2019-06-20 20:00] VITALS: BP 142/48
--- NOTE | 2019-06-20 22:05 | NUR ---
PATIENT IS RESTING IN BED AND WATCHING TV. PATIENT DENIES ANY PAIN OR CONCERNS AT THIS TIME. BED IN THE LOWEST POSITION AND CALL LIGHT WITH IN REACH. WILL CONTINUE TO MONITOR.
[2019-06-21] VITALS: BP 100/70
[2019-06-21 04:24] VITALS: BP 144/58
[2019-06-21 06:10] LABS: BASOPHILS 0.1 % (0-2); EOSINOPHILS 2.7 % (0-7); HEMATOCRIT 34.2 % (42.0-54.0); HEMOGLOBIN 11.9 g/dL (13.5-17.5); IMMATURE GRANULOCYTES 0.4 % (0-5); LYMPHOCYTES 5.2 % (15-50); MCH 30.7 pg (26.0-34.0); MCHC 34.8 g/dL (31.0-37.0); MCV 88.4 fL (80.0-100.0); MEAN PLATELET VOLUME 10.1 fL (7.4-10.4); MONOCYTES 7.5 % (2-11); NEUTROPHILS 84.1 % (40-80); PLATELET COUNT 186 10x3/uL (130-400); RBC 3.87 10x6/uL (4.20-6.10); WBC 13.2 10x3/uL (4.8-10.8)
[2019-06-21 06:20] LABS: CALC OSMOLALITY 270 mosm/kg (275-300); CALCIUM 8.6 mg/dL (8.5-10.1); CHLORIDE - SERUM 100 mmol/L (98-107); CREATININE - SERUM 0.7 mg/dL (0.6-1.3); GLUCOSE 123 mg/dL (74-106); MAGNESIUM - SERUM 1.7 mg/dL (1.8-2.4); POTASSIUM - SERUM 4.3 mmol/L (3.5-5.1); SODIUM 135 mmol/L (136-145); UREA NITROGEN 13 mg/dL (7-18); eGFR NON AFRICAN AMERICAN > 90 mL/min (90-120)
[2019-06-21 09:12] VITALS: BP 133/62
--- NOTE | 2019-06-21 09:43 | MORECARE ---
CASE MANAGEMENT DISCHARGE SUMMARY PATIENT: ANNEL NUNEZ UNIT: [id number] ADM DATE: 06/13/19 AGE: 73 : 46 SEX: M ROOM/BED: D.1094 AUTHOR: ALICE,DOC PHYSICIAN: REFERRING PHYSICIAN: DANNI TAY MD DATE OF SERVICE: 06/21/19 Discharge Plan Patient Name: ANNEL NUNEZ Facility: [facility]:[place] : 1945 Planned Disposition: Group Home Facility Anticipated Discharge Date: 06/21/19 Discharge Date: Expected LOS: 8 Initial Reviewer: [id number] Initial Review Date: 06/19/2019 Generated: 06/21/19 10:43 am Comments DCP- Discharge Planning Updated by [email or web address]: Jase Batista on 06/21/19 8:[address] Patient Name: ANNEL NUNEZ Encounter No: [id number] : 1945 Primary Insurance: HUMANA CHOICE PPO MCR ADVANT Anticipated DC Date: 06-21-2019 Planned Disposition: Group Home Facility External Planned Provider: [facility], MEDICARE REHAB BED DCP follow-up note: FOR CM RECEIVED DISCHARGE, CM NOTIFIED PT. CM FAXED DISCHARGE INFORMATION TO [facility] AT [phone]. CM SPOKE TO AYDEN AT [facility], SHE WILL CALL PT'S FAMILY TO GET ASSISTANCE WITH FILLING OUT ADMISSION PAPERWORK. [facility] TO SEND VAN AT 1000AM. TRANSIT PROOF MACHINE OPERATOR NURSE AND PT NOTIFIED. NURSE REPORT TO BE CALLED TO [facility] AT [phone]. [facility] TO ARRANGE VAN DRY HEAT CABINET ATTENDANT TODAY AT 1000AM. Jase Batista, CASE MANAGEMENT DCP- Discharge Planning Updated by [id number]: Jase Batista on 06/20/19 4:[address] Patient Name: ANNEL NUNEZ Encounter No: [id number] : 1945 Primary Insurance: HUMANA CHOICE PPO MCR ADVANT Anticipated DC Date: 06-21-2019 Planned Disposition: Group Home Facility External Planned Provider: [facility], MEDICARE REHAB BED CM RECEIVED CALL FROM AYDEN AT [facility], , NOTIFIED THEY WILL ACCEPT TOMORROW MORNING, WILL ARRANGE VAN DRY HEAT CABINET ATTENDANT EARLY. CM NOTIFIED PT IN ROOM AND PT'S SISTER, REDD COLIN, VIA PHONE, WHO IS IN AGREEMENT WITH DISCHARGE PLAN. PETAR MATTHEWS NOTIFIED. IMPORTANT MESSAGE FROM MEDICARE PROVIDED AND EXPLAINED TO PT. FOR DISCHARGE, FAX DISCHARGE INFORMATION TO [facility] AT [phone]. NURSE REPORT TO BE CALLED TO [facility] AT [phone]. [facility] TO ARRANGE VAN DRY HEAT CABINET ATTENDANT FIRST THING IN THE MORNING, 06-21-19. Jase Batista CASE MANAGEMENT DCP- Discharge Planning Updated by [id number]: Jase Batista on 06/20/19 11:[address] Patient Name: ANNEL NUNEZ Encounter No: [id number] : 1945 Primary Insurance: HUMANA CHOICE PPO MCR ADVANT Anticipated DC Date: 06-20-2019 Planned Disposition: Group Home Facility External Planned Provider: [facility] DCP follow-up note: CM RETURNED CALL TO COSME AT [facility], , [facility] HAS SUBMITTED FOR INSURANCE AUTHORIZATION. CM WAITING ADMISSION DETERMINATION FROM [facility] IN [place] INSURANCE DETERMINATION FOR SKILLED REHAB SERVICES. AHSAN GODOY DCP- Discharge Planning Updated by [id number]: Jase Batista on 06/19/19 3:[address] Patient Name: ANNEL NUNEZ Encounter No: [id number] : 1945 Primary Insurance: HUMANA CHOICE PPO MCR ADVANT Anticipated DC Date: 06-20-2019 Planned Disposition: Group Home Facility External Planned Provider: [facility], MEDICARE REHAB BED DCP follow-up note: CM RECEIVED CALL FROM BERNABE OF INPATIENT REHAB WHO INFORMED CM THAT INSURANCE HAS DECLINED PT AND THAT A PEER TO PEER COULD BE DONE. CM SPOKE TO DR. HOOKER WHO AGREED TO DO PEER TO PEER. CM CALLED INSURANCE COMPANY AND ARRANGED FOR INSURANCE TO CALL DR. HOOKER TODAY. CM MET WITH PT IN ROOM TO DISCUSS DISCHARGE PLANNING AND NEEDS. PT WAS UNABLE TO SPEAK AND CM WAS ABLE TO READ PT'S LIPS. PT REPORTS LIVING AT HOME INDEPENDENTLY WITH HIS ADULT SISTER. PT STATES REHAB WHEN ASKED ABOUT DISCHARGE PLAN AND DIRECTED CM TO CALL HIS SISTER. CM CALLED PT'S SISTER, REDD COLIN, . REDD REPORTS PT LIVES WITH THEM AND HE NEEDS REHAB AND IF AT NOT AT INPATIENT REHAB, THEN AT [facility] IN [place]. CHOICE LETTER COMPLETED. REDD REPORTS THAT IF PT GETS TO THE POINT HE CAN CARE FOR HIMSELF, THE GOAL IS [facility]. IF NOT, PT MAY NEED [facility] CARE. CM LATER INFORMED THAT PEER TO PEER HAD BEEN DONE AND INSURANCE DECLINED INPATIENT REHAB SERVICES. CM CALLED AYDEN AT [facility], , NOTIFIED OF REFERRAL. CM FAXED REFERRAL FOR REHAB TO [facility] AT [phone]. CM WAITING ADMISSION DETERMINATION FROM [facility] IN [place] INSURANCE DETERMINATION FOR SKILLED REHAB SERVICES. JASE BATISTA, CASE MANAGEMENT DCPIA - Discharge Planning Initial Assessment Updated by KRISTIAN: Jase Batista on 06/19/19 3:50 pm * Is the patient Alert and Oriented? Yes * How many steps to enter\exit or inside your home? NONE * PCP DR. LACKEY IN [place] * Pharmacy [facility] IN [place] * Preadmission Environment Home with Family * ADLs Independent * Equipment Cane Walker * Other Equipment NO MEDICAL EQUIPMENT PROVIDER PREFERENCE * List name and contact numbers for known caregivers / representatives who currently or will assist patient after discharge: REDD COLIN, SISTER, * Verbal permission to speak to the caregivers and representatives has been obtained from the patient. Yes * Community resources currently utilized None * Please name any agencies selected above. NONE * Additional services required to return to the preadmission environment? No * Can the patient safely return to the preadmission environment? Yes * Has this patient been hospitalized within the prior 30 days at any hospital? No Coverage Notice Reviewer: [id number] - Jase Batista Notice Issued Date-Time: 06/20/2019 17:45 Notice Type: IM Discharge Notice Notice Delivered To: Patient Relationship to Patient: Environmental Conservation Professor Name: Delivery Method: HAND - Hand Delivered Samanta Days: Prior Verbal Notification: Recipient Understood Notice: Yes Recipient Signature: Yes Med Rec Note Co-signed by Attending: Coverage Notice Comment: Last DP export: 06/20/19 4:56 p Patient Name: ANNEL NUNEZ Page 67300 at 0943 All edits/amendments must be made on the electronic document DICTATION DATE: 06/21/19942 DOCTOR'S ASSISTANT: DM 06/21/19942 RPT#: [id number] DC DATE: STATUS: ADM IN [facility] [address] [place] [address] END OF REPORT
--- NOTE | 2019-06-21 10:40 | NUR ---
DISCHARGE INSTRUCTIONS REVIEWED WITH PT AND ALL QUESTIONS ANSWERED. PIV REMOVED WITH CATHETER TIP INTACT. ASSISTED PT INTO WHEELCHAIR WHERE HE LEFT WITH [facility] TRANSPORT. REPORT CALLED TO [facility].
== END 2019-06-21 10:42 | DRG 682 ==
LOC: D.ER 15:31 → D.M2 18:55
PROVIDERS: Family Medicine; Internal Medicine; Urology; ADMIT Internal Medicine Nephrology; ATTEND Internal Medicine Nephrology
PROC: 0VB08ZX Excision of Prostate, Via Natural or Artificial Opening Endoscopic, Diagnostic (ICD-10-PCS; principal; 2019-06-18 14:30)
DX: N17.9 Acute kidney failure, unspecified (principal); I63.9 Cerebral infarction, unspecified; N13.8 Other obstructive and reflux uropathy; E87.0 Hyperosmolality and hypernatremia; N40.1 Benign prostatic hyperplasia with lower urinary tract symptoms; N13.2 Hydronephrosis with renal and ureteral calculous obstruction; E87.5 Hyperkalemia; J44.9 Chronic obstructive pulmonary disease, unspecified; I71.4 Abdominal aortic aneurysm, without rupture; K59.00 Constipation, unspecified; N18.9 Chronic kidney disease, unspecified; R97.20 Elevated prostate specific antigen [PSA]; D63.1 Anemia in chronic kidney disease; Z87.891 Personal history of nicotine dependence; Z86.73 Personal history of transient ischemic attack (TIA), and cerebral infarction without residual deficits

== ENCOUNTER 2019-08-27 08:35 | Day surgery (SDC) | payer MEDICARE, MEDICAID ==
[2019-08-26 10:00] LABS: BASOPHILS 0.3 % (0-2); EOSINOPHILS 2.9 % (0-7); HEMATOCRIT 36.4 % (42.0-54.0); HEMOGLOBIN 11.9 g/dL (13.5-17.5); IMMATURE GRANULOCYTES 0.3 % (0-5); MCH 30.2 pg (26.0-34.0); MCHC 32.7 g/dL (31.0-37.0); MCV 92.4 fL (80.0-100.0); MONOCYTES 8.6 % (2-11); NEUTROPHILS 79.9 % (40-80); PLATELET COUNT 185 10x3/uL (130-400); RBC 3.94 10x6/uL (4.20-6.10); RDW 13.5 % (11.5-14.5); WBC 11.2 10x3/uL (4.8-10.8)
[2019-08-26 10:15] LABS: ANION GAP 15.2 mmol/L (8-16); CALCIUM 9.1 mg/dL (8.5-10.1); CARBON DIOXIDE 25.7 mmol/L (21.0-32.0); CREATININE - SERUM 3.8 mg/dL (0.6-1.3); POTASSIUM - SERUM 4.9 mmol/L (3.5-5.1)
[2019-08-26 10:20] LABS: APTT 51.1 SECONDS (22.8-39.4); INR 1.22 (0.85-1.17); PROTIME 14.9 SECONDS (11.6-15.0)
[~2019-08-27] VITALS: Ht 175.3 cm; Wt 76.8 kg
[~2019-08-27 08:35] MED LIST changes: +CIPRO500 MG PO; +FLOMAX0.4 MG PO; +PEPCID PO; +PROSCAR PO
[2019-08-27] MEDS ORDERED: K-TAB10 MEQ PO (08:51)
[2019-08-27] MEDS ORDERED: LISINOPRIL10 MG PO (08:51)
[2019-08-27 08:54] VITALS: BP 171/85; BMI 25.0
[2019-08-27 18:46] VITALS: BP 158/75
[2019-08-27 21:03] VITALS: BP 161/74
[2019-08-28 01:21] VITALS: BP 166/60
--- NOTE | 2019-08-28 03:31 | NUR ---
I have reviewed this patient and I concur with the Shift Assessment completed by the Licensed Practical Nurse today this shift.
[2019-08-28 05:06] VITALS: BP 170/75
[2019-08-28 05:41] VITALS: BP 161/74; Ht 175.3 cm; Wt 76.8 kg
[2019-08-28 08:20] VITALS: BP 130/67
--- NOTE | 2019-08-28 08:28 | NUR ---
RESTING IN BED, IRRIGATION TO BLADDER IN PLACE, URINE DARK, INCREASED GTT, CONT TO MONITOR
--- NOTE | 2019-08-28 08:34 | OP ---
PATIENT NAME: MAEGAN NUNEZ MEDICAL RECORD: [id number] :[birth year] LOCATION:D.MS [address].2233 ADMISSION DATE: SURGEON: BORIS MENDEZ MD DATE OF OPERATION: 08/27/2019 SURGEON: Boris Mendez MD ANESTHESIA: TIVA by Boris Hernandez MD DIAGNOSES: History of urinary retention, obstructive benign prostatic hypertrophy. PROCEDURE: UroLift times 6. FINDINGS: Long obstructive lateral lobes and a small median lobe. No bladder tumors. Single ureteral orifices bilaterally. ESTIMATED BLOOD LOSS: Minimal. CLINICAL HISTORY: This is a 73-year-old male, who had urinary retention after an orthopedic procedure. The catheter was not easily inserted and he had to have a catheter inserted under direct cystoscopy. During cystoscopy, he was noted to have very large lateral lobes, which were long and obstructive. There was also a small median lobe. He comes today to have the UroLift procedure done to relieve the obstruction. He was given Ancef on-call to the OR. DESCRIPTION OF PROCEDURE: The patient was given IV sedation. He was placed in the lithotomy position and prepped and draped. The Urolift scope was introduced. Cystoscopic findings are as outlined above. At 1.5 cm distal to the bladder neck, the first 2 implants were placed at the anterolateral sulcus. One unit was then implanted on each side, then at the level of the verumontanum, 1 unit was placed on each side at the level of the anterolateral sulcus. Looking in with the visual obturator, there was still obstruction in the mid prostatic urethra. Therefore, in the mid urethra of the mid prostatic urethra, we placed 1 more unit on each side. This gave a total of 6 implanted units. Now he has nice open channel for voiding. The prostate is extremely vascular and there was significant bleeding from the placement of these implants. This is venous bleeding. I placed a 16-Kyrgyz Fernandez catheter into the patient. The balloon was inflated with 10 cc of sterile water. I will see the patient in followup on Monday to remove the catheter for a voiding trial. TRANSINT:[id number] Voice Confirmation ID: [id number] DOCUMENT ID: [id number] BORIS MENDEZ MD at 0834 CC: [id number] DICTATION DATE: 08/27/19 1527 FARMWORKER FIELD CROP: 08/27/191926 [facility] [address] [place] [address]
--- NOTE | 2019-08-28 08:34 | OP ---
PATIENT NAME: MAEGAN NUNEZ MEDICAL RECORD: [id number] :[birth year] LOCATION:D.MS [id number] ADMISSION DATE: SURGEON: BORIS MENDEZ MD DATE OF OPERATION: 08/27/2019 SURGEON: Boris Mendez MD ANESTHESIA: Local anesthetic by Loy Kay CRNA. DIAGNOSIS: Clot urinary retention. PROCEDURE: Cystoscopy, bladder clot evacuation, Fernandez catheter insertion over a guidewire. FINDINGS: Bladder blood clots, venous bleeding from the prostate. BLOOD LOSS: Difficult to estimate. CLINICAL HISTORY: This is a 73-year-old male with difficulty voiding and history of urinary retention. He had the UroLift times 6 placed earlier today. He was given Levaquin IV at that time. Subsequently, he had issues with hematuria from a very vascular prostate. I had inserted a 16-Andorran Fernandez catheter at the end of the UroLift procedure. This catheter clotted off. The nurse removed it under my direction. She then tried to insert a 20-Andorran 3-way Fernandez catheter, but this was not successful. The patient is very full. His bladder was scanned with an ultrasound unit and had over 500 mL of fluid in it. The actual volume was about 520 mL. He is feeling very uncomfortable and I am going to bring him back to the operating room to declot his bladder. He had drank a lot of fluids in the attempt to induce voiding. Therefore, we will have to perform this under local anesthetic. DESCRIPTION OF PROCEDURE: The patient was placed on the OR table. He was placed in the lithotomy position. The Fernandez catheter that the nurse had attempted to place was removed. It was not very mobile and therefore I suspect that the balloon had been inflated either in the prostate or the penile urethra. The 21-Andorran cystoscope with 30-degree lens was used for visualization. There are clots in the urethra and in the bladder. There is some venous oozing from the prostatic urethra. An [employer] evacuator was used to remove the clots from the bladder. I then inserted a Sensor wire through the lumen of the scope into the bladder. The scope was then removed, leaving the wire in place. Over the wire, a 20-Andorran wiyot tip 3-way Fernandez catheter was placed into the bladder. The balloon was then inflated with 10 cc of sterile water. Continuous bladder irrigation with normal saline was started. The catheter was put to bag drainage. He will be admitted for overnight observation. TRANSINT:[id number] Voice Confirmation ID: [id number] DOCUMENT ID: [id number] OPERATIVE REPORT [id number] MAEGAN NUNEZ, BORIS Ward MD at 0834 CC: [id number] DICTATION DATE: 08/27/19 184 GLASS SANDER BELT: 08/27/19 [address] [place] [address]
== END 2019-08-28 13:49 | disposition home or self-care (01) ==
LOC: D.OPS 08:35 → D.PAN 10:00 → D.OPS 10:00 → D.MS 18:44 → D.OPS 08-28 13:49
PROVIDERS: Anesthesiology; ATTEND Urology
DX: R33.8 Other retention of urine (principal); N40.1 Benign prostatic hyperplasia with lower urinary tract symptoms; N13.8 Other obstructive and reflux uropathy
CPT/HCPCS: 52001; C9740

== ENCOUNTER → 2019-10-09 18:37 | Outpatient (CLI) | payer MEDICARE, MEDICAID ==
[2019-08-28 05:41] VITALS: BMI 25.0
[~2019-10-09 18:37] MED LIST changes: +K-TAB10 MEQ PO
== END | disposition home or self-care (01) ==
LOC: D.LABREF 18:37
PROVIDERS: ATTEND Urology
DX: R82.90 Unspecified abnormal findings in urine (principal); R31.9 Hematuria, unspecified

== ENCOUNTER → 2020-06-24 20:10 | Outpatient (CLI) | payer MEDICARE, MEDICAID ==
[2019-08-28 05:41] VITALS: BMI 25.0
== END | disposition home or self-care (01) ==
LOC: D.LABREF 20:10
PROVIDERS: ATTEND Urology
DX: N39.0 Urinary tract infection, site not specified (principal)